=== PATIENT | male | born 1940 | race Caucasian/White ===

== ENCOUNTER → 2023-09-05 09:34 | Outpatient (REF) | payer MEDICARE, OTHER, SELFPAY ==
[2023-09-05 11:28] LABS: Glycohemoglobin (HgbA1c) 7.7 % (4.0-5.6)
[2023-09-05 11:37] LABS: ALT (SGPT) 36 U/L (0-50); AST (SGOT) 36 U/L (17-59); Albumin 4.2 g/dl (3.5-5.0); Alkaline Phosphatase 154 U/L (38-126); Blood Urea Nitrogen 10 mg/dl (9-20); Calcium 9.3 mg/dl (8.4-10.2); Carbon Dioxide 26 mmol/L (22-30); Chloride 99 mmol/L (98-107); Glucose 218 mg/dl (70-99); HDL Cholesterol 68 mg/dl; LDL Cholesterol, Calculated 37 mg/dl; Potassium 3.6 mmol/L (3.5-5.1); Sodium 134 mmol/L (135-145); Total Bilirubin 0.7 mg/dl (0.2-1.3); Total Cholesterol 139 mg/dl (50-199); Total Protein 7.6 g/dl (6.3-8.2); Triglyceride 173 mg/dl (10-149); Very Low Density Lipoprotein 34 mg/dl (0-30); eGFR > 60.00
[2023-09-05 12:22] LABS: Free T4 1.24 ng/dl (0.78-2.19)
== END ==
LOC: REG 09:34
PROVIDERS: ATTENDING PHYSICIAN Student in an Organized Health Care Education/Training Program
DX: E11.9 Type 2 diabetes mellitus without complications (principal); I25.10 Atherosclerotic heart disease of native coronary artery without angina pectoris; I48.0 Paroxysmal atrial fibrillation; R79.89 Other specified abnormal findings of blood chemistry
CPT/HCPCS: 36415; 80053; 80061; 83036; 84439; 84443

== ENCOUNTER 2023-09-12 14:21 | Emergency (ER) | payer MEDICARE, OTHER, SELFPAY ==
[2023-09-12 14:24] VITALS: BP 150/81
--- NOTE | 2023-09-12 15:07 | ED.GENMED ---
History of Present Illness
<Carrington Gallegos DO - Last Filed: 09/15/23 08:06>
General
Chief Complaint: Musculo-Skeletal Complaint
Time Seen by Provider: 09/12/23 14:29
<WEST Warren - Last Filed: 09/13/23 20:16>
General
Source: patient
Nursing documentation reviewed up to this point in time: agreed with
Travel History
Have you had any contact with someone who has COVID-19?: No
Do you have any symptoms of coronavirus? Fever > 100 degrees, chills, cough, shortness of breath, sore throat, loss of taste or smell, muscle aches, or headache?: No
History of Present Illness
History of Present Illness:
83 yr old male presents to the ER for evaluation. at bedside reports patient does have dementia and started to complain of pain to his right wrist since yesterday. She did not realize it was swollen until here in the ER. She denies any
injury and he himself denies injury. He does have history of gout on allopurinol reports no fevers. Patient does have a history of dementia and is having difficulty giving history giving majority of history.
Past History
<WEST Warren - Last Filed: 09/13/23 20:16>
Past History
ED Past Medical History: CAD, CHF, HTN, Hypercholesterolemia, NIDDM and Other (gout)
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
Patient has exhibited threatening behavior?: No
Social History
Tobacco: Former smoker (cessation at 35 y/o)
Alcohol: None
Drug: None
Personal:
Living: with family
Employment: Retired
Family History
Family History: Other
Review of Systems
<WEST Warren - Last Filed: 09/13/23 20:16>
Review of Systems
Allergies reviewed?: Yes
All Other Systems: ROS reviewed and negative except as documented in HPI and ROS
Constitutional: Reports no symptoms; Denies fever
Respiratory: Reports no symptoms
Cardiac: Reports no symptoms
Musculoskeletal: Reports other (right wrist pain )
Neurological: Reports no symptoms
Psychiatric: Reports no symptoms
Phy Exam
<WEST Warren - Last Filed: 09/13/23 20:16>
General Physical Exam
General Presentation: well appearing
General age: appears stated age
General Skin: warm and dry
General Habitus: elderly
General Mental: alert
General Hydration: appears well hydrated
Neurological Exam
Neurological Exam: alert
Musculoskeletal Exam
Musculoskeletal Exam: other (RUE with strong pulses + swelling to right wrist area tender throughout )
Skin Exam
Skin Exam: normal color and warm/dry
Psychiatric Exam
Psychiatric Exam: normal mood/affect
Course
<Carrington Gallegos DO - Last Filed: 09/15/23 08:06>
Orders/Labs/Results
Orders:
Orders
09/12/23 14:26
Forearm, Right 2 View [CR Forearm - Right 2 View] Urgent
Comment:
Reason For Exam: pain
09/12/23 14:27
Hand, Right 3 View [CR Hand - Right Min 3 Views] Urgent
Comment:
Reason For Exam: pain
09/12/23 15:21
Venous Doppler Upr Ext Right [US Periph Venous UPPER Ext RT] Urgent
Comment:
Reason For Exam: pain swelling to right forearm/wrist
09/12/23 17:43
Prednisone [Deltasone] 40 mg PO NOW STA
Vital Signs
Initial and Last Documented VS:
Initial Vital Signs
Temp Pulse Resp BP Pulse Ox
98 F 83 16 150/81 98
09/12/23 14:24 09/12/23 14:24 09/12/23 14:24 09/12/23 14:24 09/12/23 14:24
Last Documented Vital Signs
Temp Pulse Resp BP Pulse Ox
98 F 71 13 150/81 95
09/12/23 14:24 09/12/23 17:12 09/12/23 17:12 09/12/23 14:24 09/12/23 17:12
<WEST Warren - Last Filed: 09/13/23 20:16>
Orders/Labs/Results
Orders:
Orders
09/12/23 14:26
Forearm, Right 2 View [CR Forearm - Right 2 View] Urgent
Comment:
Reason For Exam: pain
09/12/23 14:27
Hand, Right 3 View [CR Hand - Right Min 3 Views] Urgent
Comment:
Reason For Exam: pain
09/12/23 15:21
Venous Doppler Upr Ext Right [US Periph Venous UPPER Ext RT] Urgent
Comment:
Reason For Exam: pain swelling to right forearm/wrist
09/12/23 17:43
Prednisone [Deltasone] 40 mg PO NOW STA
Vital Signs
Initial and Last Documented VS:
Initial Vital Signs
Temp Pulse Resp BP Pulse Ox
98 F 83 16 150/81 98
09/12/23 14:24 09/12/23 14:24 09/12/23 14:24 09/12/23 14:24 09/12/23 14:24
Last Documented Vital Signs
Temp Pulse Resp BP Pulse Ox
98 F 71 13 150/81 95
09/12/23 14:24 09/12/23 17:12 09/12/23 17:12 09/12/23 14:24 09/12/23 17:12
Warper Tender consulted with Physician
Warper Tender consulted with physician?: Yes
Name of Physician Consulted: Rosy
<WEST Warren - Last Filed: 09/13/23 20:16>
MDM/Problems Addressed
Differential Diagnosis Includes:
Not limited to injury, less likely infection, gout
MDM/Problems Addressed:
patient presents to the ER with swelling /discomfort to right hand/wrist area. He Does have a history of gout. No injury. No fevers. He is afebrile here. Patient evaluated by ED physician will check ultrasound and likely plan for discharge
home on steroids.
Chronic conditions affecting care:
Gout
<WEST Warren - Last Filed: 09/13/23 20:16>
*Critical Care Note
Total Time (30-74mins, 75-104mins- exclusive of procedures): Not Applicable
ED Attending Note
<Carrington Gallegos DO - Last Filed: 09/15/23 08:06>
ED Attending Note
Patient seen and examined by attending physician: Yes
ED Attending Note:
I have reviewed and agree with history and treatment plan by Melanie Hills. My exam reveals right wrist swelling, ttp on radial side. Suspect gout. No signs dvt or fracture on US and xray. Stable for d/c. f/u with rheumatology, PCP. Treat
with short course of steroids.
<WEST Warren - Last Filed: 09/13/23 20:16>
-
Portions of this chart may have been created with voice recognition software.� Occasional wrong word or��sound alike� substitutions may have occurred due to the inherent limitations of voice recognition software.
Discharge Plan
Departure
Patient Disposition: Home (Routine Discharge)
Date of Disposition: 09/12/23
Time of Disposition: 17:44
Patient with high blood pressure during this ER visit?: Yes
Condition: Good
Discharge Problem:
Arthralgia of wrist, right, Gout
Instructions: Gout, BLOOD PRESSURE
Prescriptions:
New
prednisone 20 mg tablet
40 mg PO DAILY 4 Days Qty: 8 0RF
No Action
allopurinol 300 MG tablet
300 mg PO DAILY Qty: 30 0RF
donepezil 5 mg Tablet
10 mg PO HS
cyanocobalamin (vitamin B-12) 1,000 mcg Tablet
1,000 mcg PO DAILY
amlodipine 5 mg Tablet
10 mg PO DAILY
carvedilol 6.25 mg Tablet
6.25 mg PO BID Qty: 60 0RF
furosemide 40 mg tablet
40 mg PO DAILY
Hold Instructions: do not start until evaluated by an MD
rosuvastatin 40 MG tablet
40 mg PO DAILY
acetaminophen 325 mg Tablet
650 mg PO BIDPRN PRN (Reason: pain)
magnesium 200 mg Tablet
200 mg PO DAILY
potassium chloride 20 mEq Tablet Extended Release
40 meq PO DAILY
Eliquis 5 mg Tablet
5 mg PO BID Qty: 60 0RF
Referrals:
Rosalinda Phillips, [Non-Admitting Privileges] - Call in 1-3 days for appt
NONE,* [Family Provider] -
Interventions
Interventions:
*Risk Screen - Suicide Last Done: 09/12/23 14:24
*General Assessment Last Done: 09/12/23 14:24
*Neglect/Abuse Screening Last Done: 09/12/23 14:24
ED- Fall Risk Assessment Last Done: 09/12/23 17:51
*ED COVID-19 Vaccine History Last Done: 09/12/23 14:50
*Nursing Disposition Last Done: 09/12/23 17:51
ED-Musculoskeletal Assessment Last Done: 09/12/23 14:50
Discharge Date and Time
Discharge Date/Time: 09/12/23 17:51
Print Language: IRISH
[2023-09-12] MEDS: DELTASONE 40 MG PO (17:48)
== END 2023-09-12 17:51 | disposition home or self-care (01) ==
LOC: EMR 14:21
PROVIDERS: EMERGENCY PHYSICIAN Emergency Medicine
DX: M25.531 Pain in right wrist (principal); M10.9 Gout, unspecified; I10 Essential (primary) hypertension
CPT/HCPCS: 99284; 73090; 73130; 93971

== ENCOUNTER → 2023-09-18 18:53 | Outpatient (REF) | payer MEDICARE, OTHER, SELFPAY ==
[2023-09-18 19:56] LABS: Uric Acid 3.1 mg/dl (3.5-8.5)
== END ==
LOC: CLAB 18:53
PROVIDERS: ATTENDING PHYSICIAN Student in an Organized Health Care Education/Training Program
DX: M10.041 Idiopathic gout, right hand (principal)
CPT/HCPCS: 84550

== ENCOUNTER → 2023-10-20 11:07 | Outpatient (REF) | payer MEDICARE, OTHER, SELFPAY ==
[2023-10-20 13:07] LABS: TSH Reflex To Free T4 3.65 uIU/ml (0.47-4.68)
[2023-10-20 13:26] LABS: Vitamin B12 955 pg/ml (239-931)
[2023-10-20 14:35] LABS: Glycohemoglobin (HgbA1c) 8.6 % (4.0-5.6)
== END ==
LOC: REG 11:07
PROVIDERS: ATTENDING PHYSICIAN Psychiatry & Neurology Neurology; FAMILY PHYSICIAN Student in an Organized Health Care Education/Training Program
DX: E53.8 Deficiency of other specified B group vitamins (principal); R79.89 Other specified abnormal findings of blood chemistry; E11.9 Type 2 diabetes mellitus without complications
CPT/HCPCS: 36415; 82607; 83036; 84443

== ENCOUNTER 2023-10-31 17:27 | Inpatient (IN) | payer MEDICARE, OTHER, SELFPAY ==
[2023-10-31] VITALS (8 sets, daily range): BP systolic 104–151; BP diastolic 53–70; PULSE 74; BMI 29.3; BMI 29.2
--- NOTE | 2023-10-31 10:17 | ED.MUSCINJ ---
HPI-Injury
General
Chief Complaint: Musculo-Skeletal Complaint
Source: patient and spouse
Exam Limitations: dementia
Time Seen by Provider: 10/31/23 10:16
Nursing documentation reviewed up to this point in time: agreed with
History of Present Illness-Injury
Initial Injury comments:
83 yo male here for worsening low back pain and inability to stand recently.
w h/o dementia, CAD, HTN,HLD, NIDDM, Gout presents with . He lives at home, has caregiver 5 days a week for housework, cooking, feeding. 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
states pt has chronic low back pain that has gotten worse past 2 weeks. Also, past 3 days he 'can't walk.' Last normal independent ambulation was 'months ago.' Uses walker and cane and now cannot weight bear and won't walk at all, has been bed
ridden past 2 days.
Pt denies CP, SOB, abd. pain. Intermittently incontinent per which is nothing new.
Pt know's he's in hospital, otherwise confused.
Past History
Past History
ED Past Medical History: CAD, CHF, HTN, Hypercholesterolemia, NIDDM, Psychiatric (dementia) and Other (gout)
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
Patient has exhibited threatening behavior?: No
Social History
Tobacco: Former smoker (cessation at 35 y/o)
Alcohol: None
Drug: None
Personal:
Living: with family
Employment: Retired
Family History
Family History: Other
Review of Systems
Review of Systems
Allergies reviewed?: Yes
All Other Systems: ROS reviewed and negative except as documented in HPI and ROS
Constitutional: Denies fever
Respiratory: Denies trouble breathing
Cardiac: Denies chest pain or syncope
ABD/GI: Denies abdominal pain, nausea, vomiting, diarrhea or constipated
: Reports incontinence (chronic, intermittent); Denies dysuria or difficulty voiding
Musculoskeletal: Reports back pain and other (pain right knee with moving); Denies edema or neck pain
Skin: Reports no symptoms
Neurological: Reports weakness (generalized); Denies headache
Phy Exam
Physical Exam
Physical Exam:
GENERAL: No acute distress. Alert, demented
CONSTITUTIONAL: Afebrile.
EYES: PERRL, conjunctivae normal
Neck: Supple
ENMT: moist mucus membranes, Pharynx nl
RESPIRATORY: Regular respirations, nonlabored, lungs clear.
CARDIOVASCULAR: Regular rate and rhythm, no murmurs, no rubs.
GI: Soft, nontender, normal BS
MUSCULOSKELETAL: Needs help turning to side due to low back pain. No significant tenderness to palpation of the spine. Unable to lift or bend at knees either leg. Passive ROM at hip elicits no back or hip pain. Passive movement of knees elicits
significant pain. Moves with ease. Well perfused.
SKIN: Warm, dry, pink
PSYCH: Normal mood and affect. Well kept.
NEUROLOGIC: Awake, alert oriented to 'hospital.' Speech clear. No focal neurological deficits
Injury Course
Orders/Labs/Results
Orders:
Orders
10/31/23 10:10
Complete Blood Count/With Diff Urgent
Comprehensive Metabolic Panel Urgent
Urinalysis Reflex To Culture Urgent
Date Specimen was Collected: 10/31/23
Time Specimen was Collected: 10:08
Urine Microscopic Reflex Cult Urgent
10/31/23 10:32
Lumbar Spine Complete, 4 View [CR Lumbar Spine Comp Min 4 Vw*] Urgent
Comment:
Reason For Exam: low back pain, not walking due to pain in legs als
10/31/23 10:42
Case Management Consult ONCE
Case Management Consult: Discharge Planning
Comment: Back pain, general weakness,can't walk past 3 days, lives w , caregiver on vacation this week.
10/31/23 11:15
Knee, Right 4 or More Views [CR Knee- Right 4 Or More View*] Urgent
Comment:
Reason For Exam: pain w movement
10/31/23 11:57
Physical Therapy Consult [Pt Eval And Treat] Urgent
Treatment: Assess ambulatory status
Activity Level: As Tolerated
10/31/23 12:00
Ondansetron Injectable [Zofran] 4 mg .ROUTE .STK-MED ONE
10/31/23 12:05
Ondansetron Injectable [Zofran] 4 mg IV NOW STA
10/31/23 13:02
Occupational Therapy Consult [Ot Eval And Treat] Urgent
Treatment: eval for placement in NH, requested by Case Mngment
10/31/23 17:16
Admit/Transfer Patient As Directed
Co-Sign Provider:
Level of Care: Inpatient admission
Assign to:: Medical/Surgical
Physician / Group: Bruce
Diagnosis: Acute ambulatory dysfunction
Reason for Hospitalization: see progress note
Expected length of stay greater than two midnights?: Yes
ELOS- Estimated Length of Stay in days: 2
I certify the patient meets the requirements for IP care: Yes
10/31/23 17:18
Code Status As Directed
Resuscitation Status: Do not resuscitate
Reached after discussion with pt or family/Healthcare POA: Yes
Physician note:: Discussed with who confirms the wishes of the patient is DNR and DNI
DNR Bracelet Application ONCE
Abnormal Lab Results
10/31/23
10:10
WBC 11.9 H 10^3/uL
(4.8-10.8)
MCV 77.4 L fL
(80.0-94.0)
MCH 26.8 L pg
(27.0-31.0)
Abs Immat Gran (auto) 0.1 H 10^3/uL
(0-0.05)
Absolute Neuts (auto) 7.7 H 10^3/uL
(1.4-6.5)
Absolute Monos (auto) 1.6 H 10^3/uL
(0.1-0.6)
Lymphocytes % 19.0 L %
(20.5-51.1)
Monocytes % 13.5 H %
(1.7-9.3)
Sodium 131 L mmol/L
(135-145)
Glucose 213 H mg/dl
(70-99)
Alkaline Phosphatase 142 H U/L
(38-126)
Albumin 3.3 L g/dl
(3.5-5.0)
Urine Ketones Trace A
(Negative)
Ur Occult Blood Reflex Trace A
(Negative)
Urine Bilirubin 1+ A
(Negative)
Urine Urobilinogen 3+ A
(Neg - 1+)
Leukocyte Esterase Rfl Trace A
(Negative)
Urine Albumin (Reflex) 2+ A
(Neg - Trace)
10/31/23 10:10
10/31/23 10:10
MDM/Problems Addressed
Differential Diagnosis Includes:
Dehydration, UTI, deconditioning, retro thecal/dura bleed
DJD knee joint
MDM/Problems Addressed:
83 yo male here for worsening low back pain and inability to stand recently.
w h/o dementia, CAD, HTN,HLD, NIDDM, Gout presents with . He lives at home, has caregiver 5 days a week for housework, cooking, feeding. 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
states pt has chronic low back pain that has gotten worse past 2 weeks. Also, past 3 days he 'can't walk.' Last normal independent ambulation was 'months ago.' Uses walker and cane and now cannot weight bear and won't walk at all, has been bed
ridden past 2 days.
states pt has had no imaging of his back, He does have a vertical mid back scar but no recollection by or in records of previous back surgery
Pt denies CP, SOB, abd. pain. Intermittently incontinent per which is nothing new.
11:17 AM
CBC with no clinically significant abnormality
CMP with no clinically significant abnormality
UA negative for infection
Case management consulted for placement, most likely temporary until caregiver back from vacation
Pt vomited. Zofran ordered
Pt know's he's in hospital, otherwise confused. Does not rember vomiting 2 minutes after vomiting large amount and currently being cleaned up
1:57 p.m.
P/T and O/T in to evaluate
4:00 PM
Case management states she is looking for placement for this patient, there is no place for today
Hospitalist notified of admission
Diagnosis: Ambulatory dysfunction, low back pain
No further vomiting
*Critical Care Note
Total Time (30-74mins, 75-104mins- exclusive of procedures): Not Applicable
ED Attending Note
-
Portions of this chart may have been created with voice recognition software.� Occasional wrong word or��sound alike� substitutions may have occurred due to the inherent limitations of voice recognition software.
Discharge Plan
Departure
Patient Disposition: Admit
Date of Disposition: 10/31/23
Time of Disposition: 16:04
Admit to: Med/Surg
Presentation/result/management discussed w/ accepting MD/DO: Hospitalist
Condition: Fair
Discharge Problem:
Ambulatory dysfunction
Interventions
Interventions:
*Risk Screen - Suicide Last Done: 10/31/23 10:00
*General Assessment Last Done: 10/31/23 10:00
*Neglect/Abuse Screening Last Done: 10/31/23 10:00
ED- Fall Risk Assessment Last Done: 10/31/23 10:00
*ED COVID-19 Vaccine History Last Done: 10/31/23 10:00
ED-Musculoskeletal Assessment Last Done: 10/31/23 10:00
[2023-10-31 10:22] LABS: % Basophils 0.6 % (0-2); % Eosinophils 1.8 % (0-6); % Immature Granulocytes 0.4 % (0-0.5); % Monocytes 13.5 % (1.7-9.3); % Neutrophils 64.7 % (42.2-75.2); Absolute Basophils 0.1 10^3/uL (0-0.2); Absolute Eosinophils 0.2 10^3/uL (0-0.7); Absolute Immature Granulocytes 0.1 10^3/uL (0-0.05); Absolute Lymphocytes 2.3 10^3/uL (1.2-3.4); Absolute Monocytes 1.6 10^3/uL (0.1-0.6); Absolute Neutrophils 7.7 10^3/uL (1.4-6.5); Hematocrit 42.7 % (39.0-52.0); Hemoglobin 14.8 g/dL (13.0-18.0); Mean Corp Hgb Conc. 34.7 g/dL (33.0-37.0); Mean Corpuscular Hgb 26.8 pg (27.0-31.0); Mean Corpuscular Volume 77.4 fL (80.0-94.0); Mean Platelet Volume 8.9 fL (7.4-10.4); Nucleated Red Blood Cells % 0 % (-); Platelet Count 148 10^3/uL (130-400); Red Blood Cell Count 5.52 10^6/uL (4.70-6.10); Red Cell Dist. Width 14.4 % (11.5-14.5); White Blood Cell Count 11.9 10^3/uL (4.8-10.8)
[2023-10-31 10:23] LABS: Urine Albumin 2+ (Neg - Trace); Urine Bilirubin 1+ (Negative); Urine Character Clear (Clear); Urine Glucose Negative (Negative); Urine Ketone Trace (Negative); Urine Leukocyte Trace (Negative); Urine Nitrite Negative (Negative); Urine Occult Blood Trace (Negative); Urine Urobilinogen 3+ (Neg - 1+)
[2023-10-31 10:24] LABS: Urine Color Amber
[2023-10-31 10:32] LABS: Urine Red Blood Cell 0-2 /HPF (0-2)
[2023-10-31 10:40] LABS: ALT (SGPT) 32 U/L (0-50); AST (SGOT) 28 U/L (17-59); Albumin 3.3 g/dl (3.5-5.0); Alkaline Phosphatase 142 U/L (38-126); Blood Urea Nitrogen 15 mg/dl (9-20); Calcium 8.7 mg/dl (8.4-10.2); Carbon Dioxide 23 mmol/L (22-30); Chloride 100 mmol/L (98-107); Estimated Creatinine Clearance 51 ml/min; Glucose 213 mg/dl (70-99); Potassium 4.1 mmol/L (3.5-5.1); Sodium 131 mmol/L (135-145); Total Bilirubin 1.3 mg/dl (0.2-1.3); Total Protein 6.3 g/dl (6.3-8.2); eGFR > 60.00
[2023-10-31] MEDS: ZOFRAN 4 MG IV (12:06)
--- NOTE | 2023-10-31 13:47 | CM ---
CM received consult for discharge planning. Patient seen bedside with , goes by Kaz, completed initial assessment questions, reports her has dementia but is not violent or aggressive. Patient resides with his on a first
floor apartment, three steps into building. reports patient typically ambulates with no device. denies VN or SNF, reports has aid five days a week to assist with housekeeping, cleaning, cooking, patient will not allow aid to help with
dressing or showering. PCP Dr. Scruggs, pharmacy [facility]. denies any inpatient psych stays for patient. PT recommending SNF, requesting referrals to [facility]. Will need OT notes to obtain SNF auth once bed
found. CM will continue to follow for discharge planning needs.
Plan; SNF pending accepting facility, will need auth.
--- NOTE | 2023-10-31 17:24 | HPS.HSE ---
Family Physician
-
Family Physician: Cinda Leong MD, [facility]
Chief Complaint
-
Ambulatory dysfunction and inability to get out of the bed because of back pain
History of Present Illness
83-year-old gentleman who lives at home with and helper was brought in by because of inability to get out of the bed.
According to since Monday he has not been able to get out of the bed. She tried to encourage him to sit in the recliner so that he has some mobility but it was difficult for him. He was complaining of pain which she thought was mostly in the
back.
When came to ER he was noted to have pain in the legs especially so in the knees. He had initial evaluation by ED team and felt no acute issues and needs placement.
He has a history of gout on allopurinol. She is not sure when his last flare was. also thinks that there was pseudogout in his case.
Patient is a poor historian because of dementia.
During my visit he asked me to switch of the lights and cut off the talking but he was agreeable for examination.
Medical History
Past Medical History
Past Medical History: Reports Arrhythmia (afib), CAD, CHF, Dementia, HTN, NIDDM and Renal Failure (ckd3)
Past Surgical History: Reports Cardiac (cabg)
Social History
Tobacco: Non-smoker
Alcohol: None
Personal:
Living: With Family
Family History
Family History: Not pertinent
Allergies / Home Medications
Allergies reflects when Allergies were last updated in [email or web address].
Home Medications with original date entered in [email or web address]
Allergy/Medication List:
Allergies
Allergy/AdvReac Type Severity Reaction Status Date / Time
NSAIDS (Non-Steroidal Allergy Pharmacy Verified 09/12/23 14:24
Anti-Inflamma to Review
rofecoxib Allergy Pharmacy Verified 09/12/23 14:24
to Review
Salicylates * Allergy Pharmacy Verified 09/12/23 14:24
to Review
Home Medications
allopurinol 300 mg tablet 300 mg PO DAILY Gout #30 tabs 04/30/21
amlodipine 5 mg tablet 10 mg PO DAILY Blood pressure 12/13/21
cyanocobalamin (vitamin B-12) 1,000 mcg tablet 1,000 mcg PO DAILY Supplement 12/13/21
donepezil 5 mg tablet 23 mg PO HS Neurological Condition 12/13/21
carvedilol 6.25 mg tablet 6.25 mg PO BID #60 tabs 12/17/21
furosemide 40 mg tablet 40 mg PO DAILY Fever/pain 12/29/21
rosuvastatin 40 mg tablet 40 mg PO DAILY High cholesterol 12/29/21
acetaminophen 325 mg tablet 650 mg PO BIDPRN PRN pain 04/05/22
magnesium 200 mg tablet 200 mg PO DAILY Supplement 04/05/22
potassium chloride 20 mEq tablet,extended release 20 meq PO DAILY Electrolyte Repletion 04/05/22
apixaban 5 mg tablet (Eliquis) 5 mg PO BID #60 tabs 04/07/22
quetiapine 25 mg tablet (Seroquel) 25 mg PO BID 10/31/23
Review of Systems
-
Unable to obtain full review of systems at this time due to: Dementia
Physical Exam
Vital Signs
Vital Signs
Temp Pulse Resp BP Pulse Ox
100.0 F 71 21 115/56 95
10/31/23 10:00 10/31/23 17:00 10/31/23 17:00 10/31/23 13:57 10/31/23 15:00
Physical Exam
General: No Apparent Distress and Comfortable (when not moved)
HEENT: Moist mucous membranes
Respiratory: Clear (anteriorly)
Cardiac: S1/S2 and Regular Rhythm
GI: Soft, Non Tender (?), Non Distended and Normal Bowel Sounds
Musculoskeletal: Other (Rt>Lt knee swelling ;warm right knee ; painful ROM more so in right knee)
Neuro: Awake, Alert and Oriented (self only)
Psych: Calm and Confused; No Agitated
Laboratory Results
-
10/31/23 10:10
10/31/23 10:10
Laboratory Results
Total Bilirubin 1.3 mg/dl (0.2-1.3) 10/31/23 10:10
AST 28 U/L (17-59) 10/31/23 10:10
ALT 32 U/L (0-50) 10/31/23 10:10
Alkaline Phosphatase 142 U/L (38-126) H 10/31/23 10:10
Data Reviewed
-
Diagnostic Radiology: Report Reviewed by me (xray of back and rt knee)
Lab Data: Labs Reviewed by me
Impression/Plan
-
Acute ambulatory dysfunction-suspect secondary to pain originating from the knees and I suspect the knees may be either gout or pseudogout. He is painful and swollen knees more so in the right knee. Right knee x-ray shows calcification of the
lateral collateral ligament and also chondrocalcinosis within the medial and lateral compartments. All raising concern of pseudogout. Check uric acid. Check inflammatory markers. Start on colchicine. He has allergies to NSAIDs of unknown
nature-hold on ibuprofen or Toradol for now.
Consult PT OT.
Lumbar spine x-ray shows no acute abnormalities.
Lab work shows no major metabolic disturbance other than mild lead low sodium. Mild elevation of leukocytes in bloodstream noted. UA not diagnostic of infection.
Chronic CHF with no decompensation-continue with his home medication
Essential hypertension-continue with his home medication
History of gout-hold allopurinol as he is going to be on colchicine.
Dementia watch for behavioral disturbance.
Discussed with on the phone regarding clinical diagnosis, findings and treatment plan.
CODE STATUS-comfortable with that his wishes are DNR and DNI.
[2023-10-31 19:37] LABS: Osmolality Urine 641 mOsm/kg (300-900)
[2023-10-31 19:43] LABS: Urine Sodium 37 mmol/L (30-90)
[2023-10-31] MEDS: ARICEPT 10 MG PO (21:03)
[2023-10-31] MEDS: COLCHICINE 0.599999999999999978 MG PO (21:05)
[2023-10-31] MEDS: SEROQUEL 25 MG PO ×2 (21:06→22:05)
[2023-10-31] MEDS: ELIQUIS 5 MG PO (21:06)
[2023-10-31] MEDS: COREG 6.25 MG PO (21:12)
[2023-10-31 21:22] LABS: Glucose - Point of Care 171 mg/dl (70-99)
--- NOTE | 2023-10-31 21:31 | W.PN.UPDATE ---
Update Note
Progress Note Update
patient requesting Seroquel 50 mg PO at night and 25mg PO daily, along with Metformin 500mg daily as he is prediabetic and its a new medications. Comfirmed with the Pharmacist. Medications ordered.
[2023-11-01 05:42] VITALS: BMI 28.8
[2023-11-01 07:25] LABS: Hematocrit 45.2 % (39.0-52.0); Hemoglobin 15.6 g/dL (13.0-18.0); Mean Corp Hgb Conc. 34.5 g/dL (33.0-37.0); Mean Corpuscular Hgb 26.7 pg (27.0-31.0); Mean Corpuscular Volume 77.3 fL (80.0-94.0); Mean Platelet Volume 9.8 fL (7.4-10.4); Platelet Count 136 10^3/uL (130-400); Red Blood Cell Count 5.85 10^6/uL (4.70-6.10); Red Cell Dist. Width 14.4 % (11.5-14.5); White Blood Cell Count 10.7 10^3/uL (4.8-10.8)
[2023-11-01 07:46] LABS: Blood Urea Nitrogen 18 mg/dl (9-20); Calcium 8.9 mg/dl (8.4-10.2); Carbon Dioxide 21 mmol/L (22-30); Chloride 102 mmol/L (98-107); Estimated Creatinine Clearance 54 ml/min; Glucose 148 mg/dl (70-99); Potassium 4.4 mmol/L (3.5-5.1); Sodium 133 mmol/L (135-145); Uric Acid 2.8 mg/dl (3.5-8.5); eGFR > 60.00
[2023-11-01 08:14] LABS: Erythrocyte Sed Rate 41 mm/hour (0-20)
[2023-11-01 08:21] VITALS: BP 146/78
[2023-11-01 08:35] LABS: Glucose - Point of Care 163 mg/dl (70-99)
[2023-11-01] MEDS: NORVASC 10 MG PO (09:04)
[2023-11-01] MEDS: LASIX 40 MG PO (09:04)
[2023-11-01] MEDS: SEROQUEL 25 MG PO (09:04)
[2023-11-01] MEDS: KCL 20 MEQ PO (09:04)
[2023-11-01] MEDS: COREG 6.25 MG PO ×2 (09:05→20:44)
[2023-11-01] MEDS: COLCHICINE 0.599999999999999978 MG PO ×2 (09:05→20:44)
[2023-11-01] MEDS: CRESTOR 40 MG PO (09:05)
[2023-11-01] MEDS: VITAMIN B-12 1000 MCG PO (09:05)
[2023-11-01] MEDS: ELIQUIS 5 MG PO ×2 (09:05→20:44)
[2023-11-01] MEDS: GLUCOPHAGE 500 MG PO (09:05)
[2023-11-01] MEDS: MAG-TAB SR 84 MG PO (09:06)
[2023-11-01 12:10] LABS: Glucose - Point of Care 196 mg/dl (70-99)
--- NOTE | 2023-11-01 13:32 | W.PN.HOSP.TC ---
Today's Communication/Plan
-
CW Colchicine
DC in am if continued improvement in pain
Assessment / Plan
Assessment / Plan
Acute ambulatory dysfunction-suspect secondary to pain originating from the knees and I suspect the knees may be either gout or pseudogout. He is painful and swollen knees more so in the right knee. Right knee x-ray shows calcification of the
lateral collateral ligament and also chondrocalcinosis within the medial and lateral compartments. All raising concern of pseudogout. uric acid lower. High inflammatory markers. Start on colchicine -Continue with improvement in his right knee
and left knee symptoms.. He has allergies to NSAIDs of unknown nature-hold on ibuprofen or Toradol for now.
Cw PT OT.
Lumbar spine x-ray shows no acute abnormalities.
Lab work shows no major metabolic disturbance other than mild low sodium. Mild elevation of leukocytes in bloodstream noted. UA not diagnostic of infection. WBC normalized ?reactive
mild hyponatremia. Urine shows presence of ADH. Possibly secondary to pain. Improving sodium.
Chronic CHF with no decompensation-continue with his home medication
Essential hypertension-continue with his home medication
History of gout-hold allopurinol as he is going to be on colchicine.
Dementia watch for behavioral disturbance.
Discussed with on the phone 10/30 regarding clinical diagnosis, findings and treatment plan.
CODE STATUS-comfortable with that his wishes are DNR and DNI.
Needs rehab when stable
Anticipated Discharge: Within 24 hours
Subjective/Interval History
-
Date of Service: November 01, 2023
Patient alert and oriented to place and person.
When asked about pain he denies any pain but when started examine he right-sided pain from right ankle.
Objective Data
-
Labs:
Laboratory Results
11/01/23
06:40
WBC 10.7
Hgb 15.6
Hct 45.2
Plt Count 136
Sodium 133 L
Potassium 4.4
Chloride 102
Carbon Dioxide 21 L
BUN 18
Creatinine 1.0
Glucose 148 H
Calcium 8.9
Vital Signs:
Vital Signs
Temp Pulse Resp BP Pulse Ox
98.8 F 70 18 146/78 93
11/01/23 08:21 11/01/23 09:04 11/01/23 08:21 11/01/23 09:04 11/01/23 09:00
I&O
10/31/23 11/01/23 11/02/23
06:59 06:59 06:59
Intake Total 240 / 240
Output Total 500 / 500
Balance -260 / -260
Review of Systems
-
Unable to obtain full review of systems at this time due to: Dementia
Physical Exam
-
General: No Apparent Distress
HEENT: Moist Mucous Membranes
Respiratory: Clear to Auscultation
Cardiac: Regular Rhythm and S1/S2
GI: Soft
Musculoskeletal: Other (left knee easier to move ;rt knee easier to move but in pain; rt ankle painful ROM)
Neuro: Awake, Alert and Oriented; Negative No Motor Deficits (due to dementia)
Psych: Calm and Confused
Data Reviewed
-
Labs: Labs Reviewed by me
[2023-11-01 16:15] VITALS: BP 156/60
[2023-11-01 17:09] LABS: Glucose - Point of Care 172 mg/dl (70-99)
[2023-11-01] MEDS: SEROQUEL 50 MG PO (20:43)
[2023-11-01] MEDS: ARICEPT 10 MG PO (20:44)
[2023-11-01 21:15] LABS: Glucose - Point of Care 176 mg/dl (70-99)
[2023-11-01 23:51] VITALS: BP 135/63
[2023-11-02 06:00] VITALS: BMI 28.4
[2023-11-02 07:21] LABS: Glucose - Point of Care 167 mg/dl (70-99)
[2023-11-02 08:03] VITALS: BP 164/71
[2023-11-02] MEDS: COLCHICINE 0.599999999999999978 MG PO ×2 (09:33→20:03)
[2023-11-02] MEDS: COREG PO (09:33)
[2023-11-02] MEDS: CRESTOR 40 MG PO (09:34)
[2023-11-02] MEDS: NORVASC 10 MG PO (09:34)
[2023-11-02] MEDS: LASIX 40 MG PO (09:34)
[2023-11-02] MEDS: GLUCOPHAGE 500 MG PO (09:34)
[2023-11-02] MEDS: SEROQUEL 25 MG PO (09:35)
[2023-11-02] MEDS: VITAMIN B-12 1000 MCG PO (09:35)
[2023-11-02] MEDS: MAG-TAB SR 84 MG PO (09:35)
[2023-11-02] MEDS: ELIQUIS 5 MG PO ×2 (09:35→20:03)
[2023-11-02] MEDS: KCL 20 MEQ PO (09:36)
[2023-11-02 10:28] VITALS: BP 152/66; PULSE 64; O2SAT 94
[2023-11-02 10:34] VITALS: BP 152/66; PULSE 64; O2SAT 94
[2023-11-02 11:22] LABS: Glucose - Point of Care 188 mg/dl (70-99)
[2023-11-02 15:49] VITALS: BP 147/73
[2023-11-02 16:24] LABS: Glucose - Point of Care 180 mg/dl (70-99)
--- NOTE | 2023-11-02 16:38 | CM ---
[facility] does not have a bed.
Jes Loja said he is out of network without a out of network benefit.
[facility] does not have a bed.
Spoke with reviewed above.
picked [facility] .
Referral placed .
[facility] at [facility] accepted pt.
Auth needed Npi [id number] and Dr Calzada .
requested Ambulance
[facility]
report [phone]
fax [phone]
To [facility] after auth
--- NOTE | 2023-11-02 18:36 | W.PN.HOSP.TC ---
Today's Communication/Plan
-
Physical therapy.
[facility]
Assessment / Plan
Assessment / Plan
Impression:
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
�Suspected gout versus pseudogout
Conditions prior to admission:
Chronic diastolic CHF.
Ischemic cardiomyopathy with improved left ventricular function.
Paroxysmal atrial fibrillation
Anticoagulation with Eliquis
CAD.
Mild aortic regurgitation.
Essential hypertension
Chronic kidney disease stage III.
Type 2 diabetes by history, currently controlled with diet alone.
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
Plan
Acute ambulatory dysfunction-suspect secondary to pain originating from the knees and I suspect the knees may be either gout or pseudogout. He is painful and swollen knees more so in the right knee. Right knee x-ray shows calcification of the
lateral collateral ligament and also chondrocalcinosis within the medial and lateral compartments. All raising concern of pseudogout. uric acid lower. High inflammatory markers. Initiated on colchicine and improved.
Hold allopurinol
Cw PT OT.
Lumbar spine x-ray shows no acute abnormalities.
Lab work shows no major metabolic disturbance other than mild low sodium. Mild elevation of leukocytes in bloodstream noted. UA not diagnostic of infection. WBC normalized ?reactive
mild hyponatremia. Urine shows presence of ADH. Possibly secondary to pain. Improving sodium.
Chronic CHF with no decompensation-continue with his home medication
Essential hypertension-continue with his home medication
History of gout-hold allopurinol as he is going to be on colchicine.
Dementia watch for behavioral disturbance.
CODE STATUS-comfortable with that his wishes are DNR and DNI.
Needs rehab when stable
Anticipated Discharge: Within 24 hours
Subjective/Interval History
-
Date of Service: November 02, 2023
Objective Data
-
Vital Signs:
Vital Signs
Temp Pulse Resp BP Pulse Ox
97.9 F 70 17 147/73 92
11/02/23 15:49 11/02/23 15:49 11/02/23 15:49 11/02/23 15:49 11/02/23 15:49
I&O
11/01/23 11/02/23 11/03/23
06:59 06:59 06:59
Intake Total 240 / 240 720 / 720 210 / 210
Output Total 500 / 500
Balance -260 / -260 720 / 720 210 / 210
Physical Exam
-
General: Well Developed and No Apparent Distress
HEENT: Normocephalic, Atraumatic and Moist Mucous Membranes
Respiratory: Clear to Auscultation
Cardiac: Regular Rhythm and S1/S2; Negative Murmur, Rub or Gallop
GI: Soft, Nontender, Nondistended and Normal Bowel Sounds; Negative Organomegaly
Rectal: Deferred by Provider
Musculoskeletal: No Clubbing, No Cyanosis and No Edema
Skin: Negative Rash
Neuro: Awake, Alert and Nonfocal/Grossly Intact
[2023-11-02] MEDS: COREG 6.25 MG PO (20:03)
[2023-11-02 21:37] LABS: Glucose - Point of Care 204 mg/dl (70-99)
[2023-11-02] MEDS: ARICEPT 10 MG PO (22:39)
[2023-11-02] MEDS: SEROQUEL 50 MG PO (22:39)
[2023-11-02 23:40] VITALS: BP 134/67
[2023-11-03 06:00] VITALS: BMI 28.3
[2023-11-03 07:52] LABS: Glucose - Point of Care 135 mg/dl (70-99)
[2023-11-03 07:55] VITALS: BP 143/66
[2023-11-03] MEDS: GLUCOPHAGE 500 MG PO (08:41)
[2023-11-03] MEDS: ELIQUIS 5 MG PO ×2 (08:41→20:54)
[2023-11-03] MEDS: VITAMIN B-12 1000 MCG PO (08:41)
[2023-11-03] MEDS: KCL 20 MEQ PO (08:41)
[2023-11-03] MEDS: CRESTOR 40 MG PO (08:41)
[2023-11-03] MEDS: COREG 6.25 MG PO ×2 (08:41→20:54)
[2023-11-03] MEDS: MAG-TAB SR 84 MG PO (08:42)
[2023-11-03] MEDS: SEROQUEL 25 MG PO (08:42)
[2023-11-03] MEDS: COLCHICINE 0.599999999999999978 MG PO ×2 (08:42→20:54)
[2023-11-03] MEDS: NORVASC 10 MG PO (08:42)
[2023-11-03] MEDS: LASIX 40 MG PO (08:42)
--- NOTE | 2023-11-03 10:40 | CM ---
MD indicated pt medically ready for discharge.
PT OT indicated SNF need.
Merlin [phone] requested [facility] .
[facility] accept pt.
Scottieellafernando called [phone] spoke with Norma Olvera who retrieved clinical information with Reference Number [id number]. Additional clinical faxed to [phone]
requested Ambulance. [facility]cial nec form completed.
[facility]
report [phone]
fax [phone]
To [facility] after auth
[2023-11-03 12:04] LABS: Glucose - Point of Care 173 mg/dl (70-99)
[2023-11-03 15:55] VITALS: BP 120/68
--- NOTE | 2023-11-03 16:47 | W.PN.HOSP.TC ---
Today's Communication/Plan
-
Knee pain improved.
Currently on colchicine.
Able to tolerate physical therapy
Will transition back to allopurinol upon discharge.
Assessment / Plan
Assessment / Plan
Impression:
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
�Suspected gout versus pseudogout
Conditions prior to admission:
Chronic diastolic CHF.
Ischemic cardiomyopathy with improved left ventricular function.
Paroxysmal atrial fibrillation
Anticoagulation with Eliquis
CAD.
Mild aortic regurgitation.
Essential hypertension
Chronic kidney disease stage III.
Type 2 diabetes by history, currently controlled with diet alone.
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
Plan
Acute ambulatory dysfunction-suspect secondary to pain originating from the knees and I suspect the knees may be either gout or pseudogout. He is painful and swollen knees more so in the right knee. Right knee x-ray shows calcification of the
lateral collateral ligament and also chondrocalcinosis within the medial and lateral compartments. All raising concern of pseudogout. uric acid lower. High inflammatory markers. Initiated on colchicine and improved.
Hold allopurinol
Cw PT OT.
Lumbar spine x-ray shows no acute abnormalities.
Lab work shows no major metabolic disturbance other than mild low sodium. Mild elevation of leukocytes in bloodstream noted. UA not diagnostic of infection. WBC normalized ?reactive
mild hyponatremia. Urine shows presence of ADH. Possibly secondary to pain. Improving sodium.
Chronic CHF with no decompensation-continue with his home medication
Essential hypertension-continue with his home medication
History of gout-hold allopurinol as he is going to be on colchicine.
Dementia watch for behavioral disturbance.
CODE STATUS-comfortable with that his wishes are DNR and DNI.
Needs rehab when stable
Anticipated Discharge: 24 - 48 hours
Subjective/Interval History
-
Date of Service: November 03, 2023
Objective Data
-
Vital Signs:
Vital Signs
Temp Pulse Resp BP Pulse Ox
97.7 F 60 20 120/68 96
11/03/23 15:55 11/03/23 15:55 11/03/23 15:55 11/03/23 15:55 11/03/23 15:55
I&O
11/02/23 11/03/23 11/04/23
06:59 06:59 06:59
Intake Total 720 / 720 210 / 210
Balance 720 / 720 210 / 210
Physical Exam
-
General: Well Developed and No Apparent Distress
HEENT: Normocephalic, Atraumatic and Moist Mucous Membranes
Respiratory: Clear to Auscultation
Cardiac: Regular Rhythm and S1/S2; Negative Murmur, Rub or Gallop
GI: Soft, Nontender, Nondistended and Normal Bowel Sounds; Negative Organomegaly
Rectal: Deferred by Provider
Musculoskeletal: No Clubbing, No Cyanosis and No Edema
Skin: Negative Rash
Neuro: Nonfocal/Grossly Intact
[2023-11-03 16:51] LABS: Glucose - Point of Care 179 mg/dl (70-99)
[2023-11-03 21:29] LABS: Glucose - Point of Care 157 mg/dl (70-99)
[2023-11-03] MEDS: ARICEPT 10 MG PO (22:08)
[2023-11-03] MEDS: SEROQUEL 50 MG PO (22:08)
[2023-11-03 23:43] VITALS: BP 136/67
[2023-11-04 06:00] VITALS: BMI 27.8
[2023-11-04 07:00] VITALS: BP 158/68
[2023-11-04 07:34] LABS: Glucose - Point of Care 139 mg/dl (70-99)
[2023-11-04] MEDS: SEROQUEL 25 MG PO (08:57)
[2023-11-04] MEDS: NORVASC 10 MG PO (08:57)
[2023-11-04] MEDS: VITAMIN B-12 1000 MCG PO (08:57)
[2023-11-04] MEDS: GLUCOPHAGE 500 MG PO (08:58)
[2023-11-04] MEDS: KCL 20 MEQ PO (08:58)
[2023-11-04] MEDS: CRESTOR 40 MG PO (08:58)
[2023-11-04] MEDS: MAG-TAB SR 84 MG PO (08:58)
[2023-11-04] MEDS: COREG 6.25 MG PO (08:58)
[2023-11-04] MEDS: COLCHICINE 0.599999999999999978 MG PO (08:58)
[2023-11-04] MEDS: LASIX 40 MG PO (08:58)
[2023-11-04] MEDS: ELIQUIS 5 MG PO (09:10)
--- NOTE | 2023-11-04 09:36 | CM ---
Addendum entered by Rita Christopher 11/04/23 10:53:
Patient spoke with CM and is aware that patient does not want to go. IMM to be sent to [email or web address]. Patient indicated that she would talk to patient.
Addendum entered by Rita Christopher 11/04/23 09:43:
VM left for patient re; discharge and IMM
Original Note:
auth received from [facility]; called to [facility] at pending sale to [facility] and faxed to [phone]. CM updated physician and will call to patient to confirm IMM. Patient will need ambulance, form on chart per chart review. Update provided to nursing.
Plan; SNF
[facility]
report [phone]
fax [phone]
--- NOTE | 2023-11-04 11:10 | W.PN.HOSP.TC ---
Addendum entered and electronically signed by Mick Rapp MD 11/05/23 15:33:
[id number]
Original Note:
Today's Communication/Plan
-
dc back on allopurinol, dc colchicine
F/u PCP within 1 week
bmp in 1 week
Assessment / Plan
Assessment / Plan
Impression:
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
�Suspected gout versus pseudogout
Conditions prior to admission:
Chronic diastolic CHF.
Ischemic cardiomyopathy with improved left ventricular function.
Paroxysmal atrial fibrillation
Anticoagulation with Eliquis
CAD.
Mild aortic regurgitation.
Essential hypertension
Chronic kidney disease stage III.
Type 2 diabetes by history, currently controlled with diet alone.
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
Plan
Acute ambulatory dysfunction-suspect secondary to pain originating from the knees and I suspect the knees may be either gout or pseudogout. He is painful and swollen knees more so in the right knee. Right knee x-ray shows calcification of the
lateral collateral ligament and also chondrocalcinosis within the medial and lateral compartments. All raising concern of pseudogout. uric acid lower. High inflammatory markers. Initiated on colchicine and improved.
Hold allopurinol
Cw PT OT.
Lumbar spine x-ray shows no acute abnormalities.
Lab work shows no major metabolic disturbance other than mild low sodium. Mild elevation of leukocytes in bloodstream noted. UA not diagnostic of infection. WBC normalized ?reactive
mild hyponatremia. Urine shows presence of ADH. Possibly secondary to pain. Improving sodium.
Chronic CHF with no decompensation-continue with his home medication
Essential hypertension-continue with his home medication
History of gout-hold allopurinol as he is going to be on colchicine.
Dementia watch for behavioral disturbance.
CODE STATUS-comfortable with that his wishes are DNR and DNI.
DC today back on allopurinol. Going to [facility].
More than 30 minutes spent in discharge including
Final examination of the patient
Summarizing hospital stay
Instructions for continuing care to all relevant caregivers
Preparation of discharge records, prescriptions, and referral forms
Total time spent (35 in minutes):
Anticipated Discharge: Today
Subjective/Interval History
-
Date of Service: November 04, 2023
no acute events
Objective Data
-
Vital Signs:
Vital Signs
Temp Pulse Resp BP Pulse Ox
98.8 F 65 20 158/68 97
11/04/23 07:00 11/04/23 07:00 11/04/23 07:00 11/04/23 07:00 11/04/23 07:00
I&O
11/03/23 11/04/23 11/05/23
06:59 06:59 06:59
Intake Total 210 / 210 180 / 180
Balance 210 / 210 180 / 180
Review of Systems
-
Unable to obtain full review of systems at this time due to: Dementia
Physical Exam
-
General: Well Developed and No Apparent Distress
HEENT: Normocephalic, Atraumatic and Moist Mucous Membranes
Respiratory: Clear to Auscultation
Cardiac: Regular Rhythm and S1/S2; Negative Murmur, Rub or Gallop
GI: Soft, Nontender, Nondistended and Normal Bowel Sounds; Negative Organomegaly
Rectal: Deferred by Provider
Musculoskeletal: No Clubbing, No Cyanosis and No Edema
Skin: Negative Rash
Neuro: Nonfocal/Grossly Intact
Data Reviewed
-
Labs: Labs Reviewed by me
--- NOTE | 2023-11-04 11:12 | W.DS.TRANS ---
DC Summary - [employer]
-
Discharge Instructions:
Sleep Apnea Risk Intermediate
Discharge Diagnosis/Procedures Gout.
Chronic ambulatory dysfunction.
Dementia.
CHF preserved EF
Paroxysmal atrial fibrillation
Anticoagulation with Eliquis
Diet Low Cholesterol,Low Fat
Blood Work bmp in 1 week with pcp
Instructions:
Stand-Alone Forms:
Changes to Home Medications: No
Discharge Medications:
DC Medications w/original date entered in [employer]
allopurinol 300 mg tablet 300 mg PO DAILY Gout #30 tabs 04/30/21
amlodipine 5 mg tablet 10 mg PO DAILY Blood pressure 12/13/21
cyanocobalamin (vitamin B-12) 1,000 mcg tablet 1,000 mcg PO DAILY Supplement 12/13/21
donepezil 5 mg tablet 23 mg PO HS Neurological Condition 12/13/21
carvedilol 6.25 mg tablet 6.25 mg PO BID #60 tabs 12/17/21
furosemide 40 mg tablet 40 mg PO DAILY Fever/pain 12/29/21
rosuvastatin 40 mg tablet 40 mg PO DAILY High cholesterol 12/29/21
acetaminophen 325 mg tablet 650 mg PO BIDPRN PRN pain 04/05/22
magnesium 200 mg tablet 200 mg PO DAILY Supplement 04/05/22
potassium chloride 20 mEq tablet,extended release 20 meq PO DAILY Electrolyte Repletion 04/05/22
apixaban 5 mg tablet (Eliquis) 5 mg PO BID #60 tabs 04/07/22
metformin 500 mg tablet 500 mg PO DAILY Diabetes 10/31/23
quetiapine 25 mg tablet (Seroquel) 25 mg PO DAILY Mental Health/Anxiety 10/31/23
quetiapine 50 mg tablet (Seroquel) 50 mg PO HS Mental Health/Anxiety 10/31/23
Home Medication Changes
NA
Pending Results: No
[2023-11-04 12:07] LABS: Glucose - Point of Care 162 mg/dl (70-99)
[2023-11-04 13:03] VITALS: BP 147/58
== END 2023-11-04 13:40 | DRG 554 ==
LOC: 4 EAST ACU 17:27
PROVIDERS: ADMITTING PHYSICIAN Internal Medicine; ATTENDING PHYSICIAN Internal Medicine; EMERGENCY PHYSICIAN Emergency Medicine; FAMILY PHYSICIAN Student in an Organized Health Care Education/Training Program
DX: M10.9 Gout, unspecified (principal); I13.0 Hypertensive heart and chronic kidney disease with heart failure and stage 1 through stage 4 chronic kidney disease, or unspecified chronic kidney disease; I50.30 Unspecified diastolic (congestive) heart failure; E87.1 Hypo-osmolality and hyponatremia; I50.32 Chronic diastolic (congestive) heart failure; Z87.891 Personal history of nicotine dependence; Z66 Do not resuscitate; N18.30 Chronic kidney disease, stage 3 unspecified; I48.0 Paroxysmal atrial fibrillation; I25.5 Ischemic cardiomyopathy; F03.90 Unspecified dementia, unspecified severity, without behavioral disturbance, psychotic disturbance, mood disturbance, and anxiety
CPT/HCPCS: 72110; 73564; 80048; 80053; 81003; 81015; 82962; 83935; 84300; 84550; 85025; 85027; 85652; 86140; 96374; 97530; 97535; 99285

== ENCOUNTER 2025-01-20 08:25 | Inpatient (IN) | payer MEDICARE, OTHER, SELFPAY ==
[2025-01-20] VITALS (8 sets, daily range): BP systolic 126–151; BP diastolic 60–81; BMI 27.2
[2025-01-20] MEDS: MORPHINE SULFATE 4 MG IV (05:34)
--- NOTE | 2025-01-20 05:36 | ED.MUSCINJ ---
HPI-Injury
<Nemesio Washington DO - Last Filed: 01/20/25 05:37>
General
Chief Complaint: Fall
Source: patient and ambulance crew
Exam Limitations: none
Time Seen by Provider: 01/20/25 05:29
Nursing documentation reviewed up to this point in time: agreed with
History of Present Illness-Injury
Is this injury a work related problem?: No
Is pt an associate of [facility]/[place]?: No
Initial Injury comments:
84-year-old male fell getting out of his wheelchair injured his right hip no head strike he is on Eliquis, occurred just prior to arrival he is hard of hearing
Past History
<Nemesio Washington DO - Last Filed: 01/20/25 05:37>
Past History
ED Past Medical History: CAD, CHF, HTN, Hypercholesterolemia, NIDDM, Psychiatric (dementia) and Other (gout)
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
Patient has exhibited threatening behavior?: No
Social History
Tobacco: Former smoker (cessation at 35 y/o)
Alcohol: None
Drug: None
Personal:
Living: with family
Employment: Retired
Family History
Family History: Other
Phy Exam
<Nemesio Washington DO - Last Filed: 01/20/25 05:37>
Physical Exam
Physical Exam:
Physical Exam
General: Somewhat disheveled chronically ill male
Neck: No overt signs of head or neck
Heart: Regular.
Lungs: no acute respiratory distress.
Abdomen: Nontender
Neuro: Hard of hearing, moves all extremities
Skin: no rash
Psychiatric: Disheveled cooperative
Extremities: Shortened and rotated right hip painful
Injury Course
<Nemesio Washington DO - Last Filed: 01/20/25 05:37>
Orders/Labs/Results
Orders:
Orders
01/20/25 05:08
Electrocardiogram (*1) Urgent
Reason for Study: Other
Other Reason for Exam: trauma
Cardiac Monitoring- Treatment ONCE
EKG- Treatment ONCE
CR Hip - RT w/wo Pel 2-3 Vw* Urgent
Comment: include pelvis
Reason For Exam: fall
Include a pelvis x-ray?: Yes
01/20/25 05:09
Morphine Sulfate 4 mg IV NOW STA
01/20/25 05:32
Type+Screen Urgent
Complete Blood Count/With Diff Urgent
Comprehensive Metabolic Panel Urgent
01/20/25 05:58
HYDROmorphone [Dilaudid] 1 mg IV NOW STA
01/20/25 06:39
HYDROmorphone [Dilaudid] 1 mg IV NOW STA
01/20/25 07:25
CR Femur - Right Min 2 Vw Urgent
Comment:
Reason For Exam: intertrochanteric fracture
01/20/25 07:50
Echo 2D MMode Color/Doppler Routine
Reason for Study: chf,afib
01/20/25 07:[address] [CT Head W/o Iv Contrast] Routine
Comment:
Reason For Exam: fall
01/20/25 08:03
Admit/Transfer Patient As Directed
Co-Sign Provider:
Level of Care: Inpatient admission
Assign to:: Telemetry
Physician / Group: Hospitalist
Diagnosis: hip fracture
Reason for Telemetry: Arrhythmia
Date to Stop Telemetry: 01/23/25
Time to Stop Telemetry: 11:00
Reason for Hospitalization: hip fracture
Expected length of stay greater than two midnights?: Yes
ELOS- Estimated Length of Stay in days: 2
I certify the patient meets the requirements for IP care: Yes
PRN Pain Medication Management As Directed
May give lesser potent ordered pain med per pt: Yes
preference::
Protocol:: Medication orders for pain may be administered in a
manner that supports deferring to patient preference
when the pt is:
- Requesting an ordered lesser potent pain medication.
Least to most potent pain medications are defined
as: acetaminophen < NSAID < tramadol < opioids
(morphine, oxycodone, hydromorphone).
- Requesting a lesser dose of the same medication IF
ORDERED.
- Requesting a less intrusive route of administration
if both routes are prescribed by the provider (PO <
IV).
01/20/25 08:05
Code Status As Directed
Resuscitation Status: Do not resuscitate
Reached after discussion with pt or family/Healthcare POA: Yes
Physician note:: son stated DNR
DNR Bracelet Application ONCE
01/23/25 11:00
DC Protocol for Telemetry ONCE
Abnormal Lab Results
01/20/25
05:32
WBC 12.3 H 10^3/uL
(4.8-10.8)
RDW 15.7 H %
(11.5-14.5)
Absolute Neuts (auto) 6.8 H 10^3/uL
(1.4-6.5)
Absolute Monos (auto) 0.9 H 10^3/uL
(0.1-0.6)
Absolute Eos (auto) 1.5 H 10^3/uL
(0-0.7)
Eosinophils % 12.1 H %
(0-6)
Glucose 146 H mg/dl
(70-99)
Alkaline Phosphatase 163 H U/L
(38-126)
01/20/25 05:32
01/20/25 05:32
<Mark Malone PA-C - Last Filed: 01/20/25 09:00>
Orders/Labs/Results
Orders:
Orders
01/20/25 05:08
Electrocardiogram (*1) Urgent
Reason for Study: Other
Other Reason for Exam: trauma
Cardiac Monitoring- Treatment ONCE
EKG- Treatment ONCE
CR Hip - RT w/wo Pel 2-3 Vw* Urgent
Comment: include pelvis
Reason For Exam: fall
Include a pelvis x-ray?: Yes
01/20/25 05:09
Morphine Sulfate 4 mg IV NOW STA
01/20/25 05:32
Type+Screen Urgent
Complete Blood Count/With Diff Urgent
Comprehensive Metabolic Panel Urgent
01/20/25 05:58
HYDROmorphone [Dilaudid] 1 mg IV NOW STA
01/20/25 06:39
HYDROmorphone [Dilaudid] 1 mg IV NOW STA
01/20/25 07:25
CR Femur - Right Min 2 Vw Urgent
Comment:
Reason For Exam: intertrochanteric fracture
01/20/25 07:50
Echo 2D MMode Color/Doppler Routine
Reason for Study: chf,afib
01/20/25 07:[address] [CT Head W/o Iv Contrast] Routine
Comment:
Reason For Exam: fall
01/20/25 08:03
Admit/Transfer Patient As Directed
Co-Sign Provider:
Level of Care: Inpatient admission
Assign to:: Telemetry
Physician / Group: Hospitalist
Diagnosis: hip fracture
Reason for Telemetry: Arrhythmia
Date to Stop Telemetry: 01/23/25
Time to Stop Telemetry: 11:00
Reason for Hospitalization: hip fracture
Expected length of stay greater than two midnights?: Yes
ELOS- Estimated Length of Stay in days: 2
I certify the patient meets the requirements for IP care: Yes
PRN Pain Medication Management As Directed
May give lesser potent ordered pain med per pt: Yes
preference::
Protocol:: Medication orders for pain may be administered in a
manner that supports deferring to patient preference
when the pt is:
- Requesting an ordered lesser potent pain medication.
Least to most potent pain medications are defined
as: acetaminophen < NSAID < tramadol < opioids
(morphine, oxycodone, hydromorphone).
- Requesting a lesser dose of the same medication IF
ORDERED.
- Requesting a less intrusive route of administration
if both routes are prescribed by the provider (PO <
IV).
01/20/25 08:05
Code Status As Directed
Resuscitation Status: Do not resuscitate
Reached after discussion with pt or family/Healthcare POA: Yes
Physician note:: son stated DNR
DNR Bracelet Application ONCE
01/23/25 11:00
DC Protocol for Telemetry ONCE
Abnormal Lab Results
01/20/25
05:32
WBC 12.3 H 10^3/uL
(4.8-10.8)
RDW 15.7 H %
(11.5-14.5)
Absolute Neuts (auto) 6.8 H 10^3/uL
(1.4-6.5)
Absolute Monos (auto) 0.9 H 10^3/uL
(0.1-0.6)
Absolute Eos (auto) 1.5 H 10^3/uL
(0-0.7)
Eosinophils % 12.1 H %
(0-6)
Glucose 146 H mg/dl
(70-99)
Alkaline Phosphatase 163 H U/L
(38-126)
01/20/25 05:32
01/20/25 05:32
<Nemesio Washington DO - Last Filed: 01/20/25 05:37>
*Pulse Oximetry
Oxygen Mode of Delivery: Room air
<Mark Malone PA-C - Last Filed: 01/20/25 09:00>
*Pulse Oximetry
Patient hypoxic: no
*Critical Care Note
Total Time (30-74mins, 75-104mins- exclusive of procedures): Not Applicable
<Mark Malone PA-C - Last Filed: 01/20/25 09:00>
Patient Management
Discussion with other providers: Hospitalist and [employer] Application Developer
Escalation/DeEscalation of care consider admission/obs:
Hospitalist team notified and accepts for continued evaluation and treatment. Orthopedics team was also notified for consult as patient will need OR repair.
ED Attending Note
<Nemesio Washington DO - Last Filed: 01/20/25 05:37>
-
Portions of this chart may have been created with voice recognition software.� Occasional wrong word or��sound alike� substitutions may have occurred due to the inherent limitations of voice recognition software.
Discharge Plan
Departure
Patient Disposition: Admit
Date of Disposition: 01/20/25
Time of Disposition: 07:18
Presentation/result/management discussed w/ accepting MD/DO: Hospitalist
Discharge Problem:
Closed intertrochanteric fracture of right femur
Interventions
Interventions:
*Risk Screen - Suicide Last Done: 01/20/25 05:10
*General Assessment Last Done: 01/20/25 05:10
*Neglect/Abuse Screening Last Done: 01/20/25 05:10
*ED- Fall Risk Assessment Last Done: 01/20/25 05:10
*ED COVID-19 Vaccine History Last Done: 01/20/25 05:10
ED-Musculoskeletal Assessment Last Done: 01/20/25 05:19
ED- Neurological Assessment Last Done: 01/20/25 05:19
ED-Skin Assessment Last Done: 01/20/25 05:19
[2025-01-20 05:57] LABS: Hematocrit 44.9 % (39.0-52.0); Hemoglobin 15.0 g/dL (13.0-18.0); Mean Corp Hgb Conc. 33.4 g/dL (33.0-37.0); Mean Corpuscular Volume 82.2 fL (80.0-94.0); Nucleated Red Blood Cells % 0 % (-); Platelet Count 205 10^3/uL (130-400); Red Cell Dist. Width 15.7 % (11.5-14.5)
[2025-01-20] MEDS: DILAUDID 1 MG IV ×2 (06:06→06:46)
[2025-01-20 06:17] LABS: ALT (SGPT) 28 U/L (0-50); AST (SGOT) 35 U/L (17-59); Albumin 3.6 g/dl (3.5-5.0); Alkaline Phosphatase 163 U/L (38-126); Blood Urea Nitrogen 14 mg/dl (9-20); Calcium 9.2 mg/dl (8.4-10.2); Carbon Dioxide 28 mmol/L (22-30); Chloride 107 mmol/L (98-107); Glucose 146 mg/dl (70-99); Potassium 4.8 mmol/L (3.5-5.1); Sodium 139 mmol/L (135-145); Total Protein 7.0 g/dl (6.3-8.2); eGFR > 60.00
--- NOTE | 2025-01-20 07:39 | HPS.HSE ---
Family Physician
-
Family Physician: David Shelby
Chief Complaint
-
Fall
History of Present Illness
84-year-old man presented to the hospital with a fall while trying to get out of the wheelchair. Spoke to patient's son who stated that patient's who was the primary caregiver 3 months ago and patient was moved to [facility].
He has been ambulating less and less. He had a fall few months ago and then still recovering.
Medical History
Past Medical History
Past Medical History: Reports Other
Additional Past Medical History:
Dementia, history of stroke, chronic back pain, atrial fibrillation, CHF, coronary artery disease, hypertension, hyperlipidemia, peripheral artery disease, peptic ulcer disease, history of renal failure, gout, diabetes
Past Surgical History: Reports Other
Additional Past Surgical History:
Carpal tunnel surgery bilateral, bilateral inguinal hernia surgery, CABG in 2002, bowel resection 2013, left lower extremity vascular stent, AAA repair, stent in the right kidney
Social History
Tobacco: Former Smoker
Family History
Family History: Unable to Obtain
Allergies / Home Medications
Allergies reflects when Allergies were last updated in [employer].
Home Medications with original date entered in [employer]
Allergy/Medication List:
Allergies
Allergy/AdvReac Type Severity Reaction Status Date / Time
NSAIDS (Non-Steroidal Allergy Verified 01/20/25 05:09
Anti-Inflamma DENIES ANY
ALLERGIES
rofecoxib Allergy Verified 01/20/25 05:09
DENIES ANY
ALLERGIES
Salicylates * Allergy Verified 01/20/25 05:09
DENIES ANY
ALLERGIES
Home Medications
allopurinol 300 mg tablet 300 mg PO DAILY Gout #30 tabs 04/30/21
cyanocobalamin (vitamin B-12) 1,000 mcg tablet 1,000 mcg PO DAILY Supplement 12/13/21
carvedilol 6.25 mg tablet 6.25 mg PO BID #60 tabs 12/17/21
rosuvastatin 40 mg tablet 40 mg PO HS High cholesterol 12/29/21
acetaminophen 325 mg tablet 650 mg PO Q6HPRN PRN mild pain 04/05/22
potassium chloride 20 mEq tablet,extended release 20 meq PO QPM Electrolyte Repletion 04/05/22
apixaban 5 mg tablet (Eliquis) 5 mg PO BID #60 tabs 04/07/22
metformin 500 mg tablet 500 mg PO DAILY Diabetes 10/31/23
quetiapine 25 mg tablet (Seroquel) 25 mg PO HS Mental Health/Anxiety 10/31/23
amlodipine 10 mg tablet (Norvasc) 10 mg PO DAILY 01/20/25
bisacodyl 10 mg rectal suppository 10 mg ME DAILYPRN PRN if no bm aftr mom 01/20/25
furosemide 20 mg tablet (Lasix) 20 mg PO DAILY 01/20/25
magnesium hydroxide 400 mg/5 mL oral suspension (Milk of Magnesia) 30 ml PO HSPRN PRN if no bm by 3rd day 01/20/25
magnesium oxide 250 mg PO QPM 01/20/25
sertraline 25 mg tablet 75 mg PO DAILY 01/20/25
tramadol 25 mg tablet 25 mg PO Q8HPRN PRN back pain 01/20/25
Review of Systems
-
Unable to obtain full review of systems at this time due to: Dementia
Respiratory: Denies Trouble Breathing
Cardiac: Denies Chest Pain
Musculoskeletal: Reports Joint Pain (Right hip patient admits)
Physical Exam
Vital Signs
Vital Signs
Temp Pulse Resp BP Pulse Ox
98.2 F 71 14 146/70 3
01/20/25 07:21 01/20/25 07:21 01/20/25 07:21 01/20/25 07:21 01/20/25 07:21
Physical Exam
General: Other (Extremely hard of hearing)
Respiratory: Clear
Cardiac: S1/S2 and Regular Rhythm
GI: Soft and Non Tender
Musculoskeletal: Other (Mild edema lower extremities)
Skin: Warm and Other (Scratch chandler with abrasion bilateral altamirano)
Neuro: Awake, Alert, Cranial Nerves Intact and Other (Able to move all extremities, not able to lift up right leg); No Oriented
Psych: Apparent Dementia
Laboratory Results
-
01/20/25 05:32
01/20/25 05:32
Laboratory Results
Total Bilirubin 0.6 mg/dl (0.2-1.3) 01/20/25 05:32
AST 35 U/L (17-59) 01/20/25 05:32
ALT 28 U/L (0-50) 01/20/25 05:32
Alkaline Phosphatase 163 U/L (38-126) H 01/20/25 05:32
Impression/Plan
-
IMPRESSION/PLAN:
EKG-sinus rhythm, left axis deviation, right bundle branch block
X-ray of the hip reviewed by me-intertrochanteric fracture
# Traumatic right intertrochanteric fracture
Admit
Hold Eliquis
Pain control
Orthopedics consulted for surgery
Moderate but acceptable risk for surgery
Echocardiogram ordered
# Chronic HFrEF with recovered ejection fraction
Continue beta-jean, Lasix
Daily weights
Check echo
# Coronary disease with history of CABG-continue beta-blockers, statin
# Paroxysmal atrial fibrillation-continue Coreg. Hold Eliquis
# Hyperlipidemia-continue statin
# Hyperlipidemia-continue Coreg and much blood pressures
# History of gout-continue allopurinol
# Jjjirpky-Gnqh-Bjzsb and sliding scale coverage. Continue metformin today and hold tomorrow
# Peripheral artery disease with history of lower extremity stent and history of AAA repair
# History of stroke-continue statin. Hold Eliquis in anticipation for surgery. Resume when cleared by orthopedics to restart.
# Vascular dementia-continue Seroquel
# History of peptic ulcer disease-add Pepcid
# Ex-smoker
# DVT prophylaxis-SCDs
# DNR status per discussion with patient's son
Discussed with patient's son and updated
Part of this note was created using voice recognition system. Occasional wrong word or��sound alike� substitutions may have inadvertently occurred due to the inherent limitations of voice recognition software. If noted kindly bring it to my
attention for correction.
--- NOTE | 2025-01-20 09:24 | EDRN ---
this RN called the receiving unit and notified them that paper report was going to be tubed up
--- NOTE | 2025-01-20 10:39 | CM ---
Addendum entered by Zainab Guzmán 01/20/25 10:49:
Sent referral via [facility]
Original Note:
Patient resides @ [facility]; confirmed that Bed is on Hold
PLOF: facility caregiver reported that patient is independent with personal care; ambulates with a rolling walker
Plan: Return to [facility] when medially stable
[2025-01-20 11:04] LABS: Glucose - Point of Care 184 mg/dl (70-99)
--- NOTE | 2025-01-20 11:13 | PTCARENOTE ---
Received pt from ED via stretcher. Pt AAX2. KEWEENAW. Forgetful at times; bed alarm on. NSR on child monitor. Pox: 97% 2L NC. Call gandara within reach. Plan of care ongoing.
[2025-01-20] MEDS: COREG 6.25 MG PO ×2 (11:39→20:11)
[2025-01-20] MEDS: TYLENOL 650 MG PO ×3 (11:40→20:10)
[2025-01-20] MEDS: ZOLOFT 75 MG PO (11:40)
[2025-01-20] MEDS: LASIX 20 MG PO (11:40)
[2025-01-20] MEDS: GLUCOPHAGE 500 MG PO (11:40)
[2025-01-20] MEDS: NOVOLOG FLEXPEN-LOW RESISTANCE 1 UNITS SC (11:41)
[2025-01-20] MEDS: ZYLOPRIM 300 MG PO (11:42)
[2025-01-20] MEDS: NOVOLOG FLEXPEN-LOW RESISTANCE SC (16:56)
[2025-01-20 16:57] LABS: Glucose - Point of Care 138 mg/dl (70-99)
[2025-01-20] MEDS: MAGNESIUM OXIDE 250 MG PO (17:00)
[2025-01-20 17:15] LABS: Glucose - Point of Care 179 mg/dl (70-99)
--- NOTE | 2025-01-20 17:29 | CON.ORTHO ---
Consultation
-
Date/Time Consultation Performed: 01/20/25 515 PM
Consultation - Orthopedics
History
HPI: 84-year-old male history of vascular dementia presented to the emergency department complaints of right hip pain and inability to bear weight. Subsequently diagnosed with right intertrochanteric femur fracture. He was admitted to the
hospitalist service. Orthopedics was consulted for further evaluation and treatment. This evening patient really unable to provide any meaningful history. Per chart review, patient lives at rehab facility and reportedly fell out of his wheelchair
trying to go to the bathroom. He uses a combination of wheelchair and walker at baseline. He is on Eliquis and reportedly last dose was taken yesterday evening per emergency room department.
Allergies / Home Medications
Past medical history: CVA, dementia, A-fib, CHF, gout, peripheral vascular disease, chronic kidney disease
Past surgical history: Carpal tunnel, inguinal hernia surgery, CABG, bowel resection, AAA repair, kidney stent, lower extremity vascular stent
Family history: Not pertinent
Social history: Reported former smoker, lives in assisted living facility, recently
Allergy/AdvReac Type Severity Reaction Status Date / Time
NSAIDS (Non-Steroidal Allergy Verified 01/20/25 05:09
Anti-Inflamma DENIES ANY
ALLERGIES
rofecoxib Allergy Verified 01/20/25 05:09
DENIES ANY
ALLERGIES
Salicylates * Allergy Verified 01/20/25 05:09
DENIES ANY
ALLERGIES
�Medication �Instructions �Recorded
allopurinol 300 mg tablet 300 mg PO DAILY Gout #30 tabs 04/30/21
cyanocobalamin (vitamin B-12) 1,000 mcg PO DAILY Supplement 12/13/21
1,000 mcg tablet
rosuvastatin 40 mg tablet 40 mg PO HS High cholesterol 12/29/21
acetaminophen 325 mg tablet 650 mg PO Q6HPRN PRN mild pain 04/05/22
potassium chloride 20 mEq 20 meq PO QPM Electrolyte Repletion 04/05/22
tablet,extended release
metformin 500 mg tablet 500 mg PO DAILY Diabetes 10/31/23
quetiapine 25 mg tablet (Seroquel) 25 mg PO HS Mental Health/Anxiety 10/31/23
amlodipine 10 mg tablet (Norvasc) 10 mg PO DAILY Blood Pressure 01/20/25
apixaban 5 mg tablet (Eliquis) 5 mg PO BID Blood Clot 01/20/25
Prevention/Tx
bisacodyl 10 mg rectal suppository 10 mg [place] DAILYPRN PRN if no bm 01/20/25
aftr mom
carvedilol 6.25 mg tablet 6.25 mg PO BID Blood Pressure 01/20/25
furosemide 20 mg tablet (Lasix) 20 mg PO DAILY Fluid 01/20/25
Retention/Swelling
magnesium hydroxide 400 mg/5 mL 30 ml PO HSPRN PRN if no bm by 3rd 01/20/25
oral suspension (Milk of Magnesia)
magnesium oxide 250 mg PO QPM Supplement 01/20/25
sertraline 25 mg tablet 75 mg PO DAILY Mental Health 01/20/25
tramadol 25 mg tablet 25 mg PO Q8HPRN PRN back pain 01/20/25
Vital Signs / Lab Results
Temp Pulse Resp BP Pulse Ox
98.6 F 78 18 142/81 95
01/20/25 15:05 01/20/25 15:05 01/20/25 15:05 01/20/25 15:05 01/20/25 15:05
01/20/25 05:32
01/20/25 05:32
10 point review systems reviewed and negative unless otherwise stated
General: Pleasant, no acute distress at rest, confused, AAO x 1
Musculoskeletal right lower extremity
Skin intact, no erythema or ecchymotic staining
Extremity shortened externally rotated
Visible grimace with rotation of leg and palpation of groin and lateral trochanteric flare
No palpable ipsilateral knee effusion
Spontaneously moving toes
Brisk cap refill
No other areas of bony crepitus along bones or joint Center she exam
Diagnostic studies
X-rays right femur and hip independently viewed by myself. There is evidence of displaced right intertrochanteric femur fracture
Assessment / Plan
84-year-old male history of dementia with right intertrochanteric femur fracture. Had a long detailed discussion with the patient's son on the telephone regarding diagnosis and treatment options. We discussed postsurgical nonsurgical options.
After discussion mutually to proceed with surgical intervention in the form of right cephalomedullary nail fixation right intertrochanteric femur fracture. We discussed risks benefits and alternatives to surgery. Discussed the usual expected
perioperative postoperative course. No guarantees were given. After discussion verbal consent was obtained.
Nonweightbearing right lower extremity
N.p.o. at midnight
Please hold anticoagulation in preparation for OR
Pain control
Medical management per primary team
Plan: 2 OR tomorrow for operative fixation right intertrochanteric femur fracture pending OR availability medical clearance
[2025-01-20] MEDS: SENOKOT 17.2 MG PO (20:10)
[2025-01-20] MEDS: COLACE 100 MG PO (20:10)
[2025-01-20] MEDS: SEROQUEL 25 MG PO (22:20)
[2025-01-20] MEDS: CRESTOR 40 MG PO (22:20)
[2025-01-20 22:28] LABS: Glucose - Point of Care 133 mg/dl (70-99)
[2025-01-21] VITALS (17 sets, daily range): BP systolic 87–158; BP diastolic 46–78; PULSE 58; O2SAT 96; BMI 27.9
[2025-01-21] MEDS: TYLENOL PO ×3 (00:57→12:29)
[2025-01-21] MEDS: GLUCOPHAGE PO (07:33)
[2025-01-21 07:47] LABS: Glucose - Point of Care 111 mg/dl (70-99)
[2025-01-21] MEDS: LASIX 20 MG PO (07:52)
[2025-01-21] MEDS: ZYLOPRIM 300 MG PO (07:52)
[2025-01-21] MEDS: SENOKOT 17.2 MG PO ×2 (07:52→20:20)
[2025-01-21] MEDS: COLACE 100 MG PO ×2 (07:52→20:21)
[2025-01-21] MEDS: VITAMIN B-12 1000 MCG PO (07:52)
[2025-01-21] MEDS: NOVOLOG FLEXPEN-LOW RESISTANCE SC ×3 (07:52→15:59)
[2025-01-21] MEDS: COREG 6.25 MG PO ×2 (07:52→20:20)
[2025-01-21] MEDS: ZOLOFT 75 MG PO (07:52)
[2025-01-21] MEDS: TYLENOL 650 MG PO ×4 (08:03→23:03)
[2025-01-21 08:46] LABS: Hematocrit 40.5 % (39.0-52.0); Hemoglobin 13.2 g/dL (13.0-18.0); Mean Corp Hgb Conc. 32.6 g/dL (33.0-37.0); Mean Corpuscular Volume 82.0 fL (80.0-94.0); Platelet Count 178 10^3/uL (130-400); Red Cell Dist. Width 15.8 % (11.5-14.5)
--- NOTE | 2025-01-21 09:04 | W.PN.HOSP.TC ---
Today's Communication/Plan
-
for OR
Assessment / Plan
Assessment / Plan
84-year-old with right hip fracture
Echo 01/21/2024-mildly reduced LV systolic function with estimated EF 45 to 50%. Aortic sclerosis without stenosis. Mild MR. EF was 50 to 55% before but was 40 to 45% on 10/15/2021
EKG-sinus rhythm, left axis deviation, right bundle branch block
X-ray of the hip reviewed by me-intertrochanteric fracture
CVS: S1-S2 normal
Chest: CTA B/L
Abdomen: Soft, NT , Bowel sounds present
Extremities: No edema, right leg
Awake and alert. Denies pain
# Traumatic right intertrochanteric fracture
Hold Eliquis for surgery
Pain control
Moderate but acceptable risk for surgery
Echocardiogram noted
# Chronic HFrEF with recovered ejection fraction
Continue beta-jean, Lasix
Daily weights
# Coronary disease with history of CABG-continue beta-blockers, statin
# Paroxysmal atrial fibrillation- Continue Coreg. Hold Eliquis.
# Hyperlipidemia-Continue statin
# HTN-continue Coreg and watch blood pressures as he is going for procedure.
# History of gout-continue allopurinol
# Kuibtouw-Eyrc-Hehpw and sliding scale coverage. Continue metformin today and hold tomorrow
# Peripheral artery disease with history of lower extremity stent and history of AAA repair
# History of stroke-continue statin. Hold Eliquis in anticipation for surgery. Resume when cleared by orthopedics to restart.
# Vascular dementia-continue Seroquel
# History of peptic ulcer disease-H2 jean
# Ex-smoker
# DVT prophylaxis-SCDs
# DNR status per discussion with patient's son
Part of this note was created using voice recognition system. Occasional wrong word or��sound alike� substitutions may have inadvertently occurred due to the inherent limitations of voice recognition software. If noted kindly bring it to my
attention for correction.
Anticipated Discharge: 24 - 48 hours
Subjective/Interval History
-
Date of Service: January 21, 2025
Objective Data
-
Labs:
Laboratory Results
01/21/25
08:34
WBC 12.7 H
Hgb 13.2
Hct 40.5
Plt Count 178
Sodium Pending
Potassium Pending
Chloride Pending
Carbon Dioxide Pending
BUN Pending
Creatinine Pending
Glucose Pending
Calcium Pending
Vital Signs:
Vital Signs
Temp Pulse Resp BP Pulse Ox
98.0 F 64 18 158/72 96
01/21/25 07:35 01/21/25 07:52 01/21/25 07:35 01/21/25 07:52 01/21/25 07:35
I&O
01/20/25 01/21/25 01/22/25
06:59 06:59 06:59
Intake Total 440 / 440 480 / 480
Output Total 175 / 175
Balance 265 / 265 480 / 480
[2025-01-21 09:25] LABS: Blood Urea Nitrogen 15 mg/dl (9-20); Calcium 8.6 mg/dl (8.4-10.2); Carbon Dioxide 27 mmol/L (22-30); Chloride 105 mmol/L (98-107); Estimated Creatinine Clearance 89 ml/min; Glucose 136 mg/dl (70-99); Potassium 3.9 mmol/L (3.5-5.1); Sodium 136 mmol/L (135-145); eGFR > 60.00
[2025-01-21 09:29] LABS: Glycohemoglobin (HgbA1c) 5.8 % (4.0-5.6)
[2025-01-21 11:33] LABS: Glucose - Point of Care 125 mg/dl (70-99)
--- NOTE | 2025-01-21 14:20 | OR.RPT ---
Addendum entered and electronically signed by Michele Lemos MD 01/21/25 14:26:
DVT prophylaxis plan okay from my standpoint to resume Eliquis tomorrow for DVT prophylaxis
Plan to follow-up with myself outpatient in 2 to 3 weeks repeat clinical assessment repeat radiographs removal of sutures
Weightbearing as tolerated to the operative extremity mobilization with PT recommended
Original Note:
Operative Report
Operative Report
Date
January 21, 2025
Anesthesia Type:
Spinal
Operative Indications:
Right intertrochanteric femur fracture
Operative Findings :
Same
Complications:
None
Implants:
Gamma 125 degree x 10 mm short nail, 105 mm cephalomedullary screw, 37.5 x 5 mm distal interlocking screw
Procedure and Technique:
Insertion right cephalomedullary nail
INDICATIONS FOR PROCEDURE:
The patient is a 84-year-old male history of vascular dementia presented status post fall complaints of right hip pain inability to bear weight. He was subsequently diagnosed with a right intertrochanteric femur fracture. I had a long discussion
of the patient's son who is his medical power of employee benefits attorney regarding diagnosis and treatment options. Discussed with surgical nonsurgical options. After discussion we mutually like to proceed with surgical intervention in the form of right
cephalomedullary fixation right intertrochanteric femur fracture. Discussed risks benefits and alternatives to surgery. We discussed the usual expected perioperative postoperative course. No guarantees were given.
OPERATIVE PROCEDURE:
The patient was seen and identified in the preoperative holding area. The operative extremity was marked and all questions were addressed with the patient. Patient was taken to the operating room and provided anesthesia by the anesthesia team.
They were placed supine on a radiolucent fracture table. The nonoperative extremity was placed in a scissored position and well padded to the contralalteral post of the fracture table. Operative extremity was placed in a well-padded fracture boot.
Biplanar fluoroscopy confirmed appropriate reduction after axial traction, adduction and slight internal rotation of the operative extremity. Operative extremity was then prepped and draped in normal sterile fashion. Timeout was performed again
identifying the operative extremity correctly. Preoperative antibiotics were addressed.
A small incision was made several fingerbreadths proximal to the greater trochanter. Sharp dissection was carried through skin and subcutaneous tissues and deep fascial layers. Guidepin was then inserted under biplanar fluoroscopic guidance
through the tip of the greater trochanter in accordance with the implant's operative technique. This was inserted to a depth just distal to the lesser trochanter. Proximal opening reamer was then utilized. A short cephalomedullary nail was then
inserted to the appropriate depth. Trocar was then inserted through the aiming arm. Sharp dissection was then carried through skin and subcutaneous tissues as well as deep fascial layers for an additional stab incision for the cephalomedullary
screw. Guidewire was inserted through the trocar into the femoral neck and head. Appropriate position was confirmed under biplanar fluoroscopy. Attention was made to minimize the tip apex distance. Measurements were obtained for the
cephalomedullary screw. Cannulated drill was then utilized to the appropriate depth followed by the insertion of cannulated cephalomedullary screw. Appropriate final position of the screw within the confines of the femoral neck and head was
confirmed again on biplanar fluoroscopy. Additional trocar was then inserted through the aiming arm for the distal interlocking screw. Sharp dissection was carried through skin, subcutaneous tissues and deep fascial layers. Appropriate length
interlocking screw was then drilled and inserted. Final appropriate positioning was confirmed again on biplanar fluoroscopy. Satisfied with the extent of surgery, wounds were copiously irrigated with normal saline solution and closed in a layered
fashion utilizing 0 Vicryl for deep fascial layer, 2-0 Vicryl for subcu cutaneous layer and roscoe for skin. Sterile dressings were applied. Anesthesia was reversed and patient was taken to the operating room in a stable condition.
Disposition:
PACU stable condition
--- NOTE | 2025-01-21 14:33 | CM ---
CM reviewed chart, patient off floor, for OR today. Patient LTC resident at [facility], plan return when medically stable. CM will continue to follow for all discharge planning needs.
Plan; OR today, return to [facility] when stable
[2025-01-21 15:25] LABS: Glucose - Point of Care 127 mg/dl (70-99)
[2025-01-21] MEDS: NSS 1000 IV (15:59)
--- NOTE | 2025-01-21 16:09 | PTCARENOTE ---
Received pt from PACU via bed. Pt AAOX2. IVFs infusing without difficulty. Pt denies pain. POx: 97% RA. Son at bedside. Call gandara within reach. Plan of care ongoing.
[2025-01-21] MEDS: MAGNESIUM OXIDE 250 MG PO (17:05)
[2025-01-21] MEDS: SEROQUEL 25 MG PO (20:20)
[2025-01-21] MEDS: PEPCID 20 MG PO (20:21)
[2025-01-21] MEDS: CRESTOR 40 MG PO (20:21)
[2025-01-21 23:02] LABS: Glucose - Point of Care 243 mg/dl (70-99)
[2025-01-21] MEDS: ROXICODONE 5 MG PO (23:15)
[2025-01-22] VITALS (8 sets, daily range): BP systolic 122–141; BP diastolic 48–64; PULSE 60; BMI 28.3
[2025-01-22] MEDS: NSS 1000 IV (02:00)
[2025-01-22] MEDS: TYLENOL PO ×2 (03:35→23:54)
[2025-01-22 06:51] LABS: Hematocrit 35.2 % (39.0-52.0); Hemoglobin 11.6 g/dL (13.0-18.0); Mean Corp Hgb Conc. 33.0 g/dL (33.0-37.0); Mean Corpuscular Volume 81.3 fL (80.0-94.0); Platelet Count 152 10^3/uL (130-400); Red Cell Dist. Width 15.3 % (11.5-14.5)
[2025-01-22 06:55] LABS: Glucose - Point of Care 151 mg/dl (70-99)
[2025-01-22 07:14] LABS: Blood Urea Nitrogen 18 mg/dl (9-20); Calcium 8.0 mg/dl (8.4-10.2); Carbon Dioxide 23 mmol/L (22-30); Chloride 105 mmol/L (98-107); Estimated Creatinine Clearance 89 ml/min; Glucose 173 mg/dl (70-99); Potassium 4.2 mmol/L (3.5-5.1); Sodium 133 mmol/L (135-145); eGFR > 60.00
[2025-01-22] MEDS: TYLENOL 650 MG PO ×3 (07:47→19:56)
[2025-01-22] MEDS: COREG 6.25 MG PO ×2 (07:47→19:55)
[2025-01-22] MEDS: GLUCOPHAGE 500 MG PO (07:47)
[2025-01-22] MEDS: COLACE 100 MG PO ×2 (07:48→19:55)
[2025-01-22] MEDS: VITAMIN B-12 1000 MCG PO (07:48)
[2025-01-22] MEDS: SENOKOT 17.2 MG PO ×2 (07:48→19:55)
[2025-01-22] MEDS: ZOLOFT 75 MG PO (07:48)
[2025-01-22] MEDS: LASIX 20 MG PO (07:48)
[2025-01-22] MEDS: NOVOLOG FLEXPEN-LOW RESISTANCE 1 UNITS SC ×3 (07:49→17:48)
[2025-01-22] MEDS: ZYLOPRIM 300 MG PO (07:51)
--- NOTE | 2025-01-22 10:35 | CM ---
Addendum entered by Eliza Randle RN 01/22/25 14:54:
IMM reviewed and placed on chart.
Original Note:
Reviewed the chart notes. Patient is a jail resident of [facility]. Updated clinicals sent via [facility] to [facility]. CM continues to be available to patient/family and is monitoring medical plan for needs at discharge.
Plan: Discharge back to [facility] when medically stable. No precert required.
Call report to: [phone]
Fax report to: [phone]
--- NOTE | 2025-01-22 10:50 | W.PN.HOSP.TC ---
Today's Communication/Plan
-
Restart Eliquis
PT OT
Possible discharge tomorrow per case management
Assessment / Plan
Assessment / Plan
84-year-old with right hip fracture
Echo 01/21/2024-mildly reduced LV systolic function with estimated EF 45 to 50%. Aortic sclerosis without stenosis. Mild MR. EF was 50 to 55% before but was 40 to 45% on 10/15/2021
EKG-sinus rhythm, left axis deviation, right bundle branch block
X-ray of the hip reviewed by me-intertrochanteric fracture
CVS: S1-S2 normal
Chest: CTA B/L
Abdomen: Soft, NT , Bowel sounds present
Extremities: Right leg-surgical site with no bleeding
Awake and alert. Denies pain
# Traumatic right intertrochanteric fracture
Restart Eliquis
Weightbearing as tolerated
Physical therapy
Follow-up with orthopedics 2 to 3 weeks for clinical assessment and removal of sutures
# Chronic HFrEF with recovered ejection fraction
Continue beta-jean, Lasix
Daily weights
# Coronary disease with history of CABG-continue beta-blockers, statin
# Paroxysmal atrial fibrillation- Continue Coreg. Hold Eliquis.
# Hyperlipidemia-Continue statin
# HTN-continue Coreg and watch blood pressures as he is going for procedure.
# History of gout-continue allopurinol
# Osbxiwtc-Exxf-Sjbrw and sliding scale coverage. Continue metformin today and hold tomorrow
# Peripheral artery disease with history of lower extremity stent and history of AAA repair
# History of stroke-continue statin. Restart Eliquis per orthopedics
# Vascular dementia-continue Seroquel
# History of peptic ulcer disease-H2 jean
# Ex-smoker
# DVT prophylaxis-SCDs
# DNR status per discussion with patient's son
Discussed with patient's son and updated
Discussed with case management
Discussed with nursing
Part of this note was created using voice recognition system. Occasional wrong word or��sound alike� substitutions may have inadvertently occurred due to the inherent limitations of voice recognition software. If noted kindly bring it to my
attention for correction.
Anticipated Discharge: Within 24 hours
Subjective/Interval History
-
Date of Service: January 22, 2025
Objective Data
-
Labs:
Laboratory Results
01/22/25
06:02
WBC 9.4
Hgb 11.6 L
Hct 35.2 L
Plt Count 152
Sodium 133 L
Potassium 4.2
Chloride 105
Carbon Dioxide 23
BUN 18
Creatinine 0.6 L
Glucose 173 H
Calcium 8.0 L
Vital Signs:
Vital Signs
Temp Pulse Resp BP Pulse Ox
97.6 F 66 16 141/64 92
01/22/25 07:10 01/22/25 07:10 01/22/25 07:10 01/22/25 07:10 01/22/25 07:10
I&O
01/21/25 01/22/25 01/23/25
06:59 06:59 06:59
Intake Total 440 / 440 2119
Output Total 175 / 175
Balance 265 / 265 2119
--- NOTE | 2025-01-22 11:47 | W.PN.ORTHO ---
Today's Communication / Plan
-
84-year-old male postop day 1 status post right cephalomedullary nail fixation right intertrochanteric femur fracture doing well
Weightbearing as tolerated right lower extremity
PT OT
Pain control
Medical management per primary team
DVT prophylaxis: Okay to resume previously prescribed Eliquis
Plan: Follow-up with myself outpatient 2 to 3 weeks repeat clinical assessment repeat radiographs plan removal of roscoe
Subjective
.
.:
Patient resting comfortably. Pleasantly confused. Per nursing was really unable to mobilize with physical therapy today.
Vital Signs and Labs
.
Vital Signs and Labs:
Lab Results
01/22/25 06:02
01/22/25 06:02
Temp Pulse Resp BP Pulse Ox
97.6 F 66 16 141/64 92
01/22/25 07:10 01/22/25 07:10 01/22/25 07:10 01/22/25 07:10 01/22/25 07:10
Physical Exam
-
Musculoskeletal right lower extremity
Dressings with minimal bloody drainage
Moderate swelling right thigh
Patient spontaneously moving toes
Post cap refill
[2025-01-22 12:13] LABS: Glucose - Point of Care 175 mg/dl (70-99)
[2025-01-22 16:53] LABS: Glucose - Point of Care 152 mg/dl (70-99)
[2025-01-22] MEDS: MAGNESIUM OXIDE 250 MG PO (17:49)
[2025-01-22] MEDS: CRESTOR 40 MG PO (19:54)
[2025-01-22] MEDS: PEPCID 20 MG PO (19:55)
[2025-01-22] MEDS: ELIQUIS 5 MG PO (19:55)
[2025-01-22] MEDS: SEROQUEL 25 MG PO (19:55)
[2025-01-22] MEDS: ROXICODONE 5 MG PO (19:55)
[2025-01-22 22:11] LABS: Glucose - Point of Care 150 mg/dl (70-99)
[2025-01-23 03:00] VITALS: BP 147/58
[2025-01-23] MEDS: ROXICODONE 5 MG PO ×2 (05:45→13:15)
[2025-01-23] MEDS: TYLENOL 650 MG PO ×2 (05:45→13:15)
[2025-01-23 06:00] VITALS: BMI 29.4
[2025-01-23 06:25] LABS: Hematocrit 31.3 % (39.0-52.0); Hemoglobin 10.3 g/dL (13.0-18.0); Mean Corp Hgb Conc. 32.9 g/dL (33.0-37.0); Mean Corpuscular Volume 81.7 fL (80.0-94.0); Platelet Count 153 10^3/uL (130-400); Red Cell Dist. Width 15.4 % (11.5-14.5)
[2025-01-23 06:42] LABS: Blood Urea Nitrogen 14 mg/dl (9-20); Calcium 7.6 mg/dl (8.4-10.2); Carbon Dioxide 26 mmol/L (22-30); Chloride 107 mmol/L (98-107); Estimated Creatinine Clearance 89 ml/min; Glucose 114 mg/dl (70-99); Potassium 3.9 mmol/L (3.5-5.1); Sodium 135 mmol/L (135-145); eGFR > 60.00
[2025-01-23 07:04] LABS: Glucose - Point of Care 110 mg/dl (70-99)
[2025-01-23 07:35] VITALS: BP 141/54
[2025-01-23] MEDS: NOVOLOG FLEXPEN-LOW RESISTANCE SC ×2 (08:40→12:46)
[2025-01-23] MEDS: COLACE 100 MG PO (08:42)
[2025-01-23] MEDS: SENOKOT 17.2 MG PO (08:42)
[2025-01-23] MEDS: COREG 6.25 MG PO (08:42)
[2025-01-23] MEDS: GLUCOPHAGE 500 MG PO (08:42)
[2025-01-23] MEDS: ZYLOPRIM 300 MG PO (08:42)
[2025-01-23] MEDS: ELIQUIS 5 MG PO (08:42)
[2025-01-23] MEDS: LASIX 20 MG PO (08:42)
[2025-01-23] MEDS: VITAMIN B-12 1000 MCG PO (08:42)
[2025-01-23] MEDS: ZOLOFT 75 MG PO (08:43)
--- NOTE | 2025-01-23 10:31 | W.DCSUMMARY ---
Addendum entered and electronically signed by Naeem Barrera MD 01/23/25 15:16:
Anemia -suspect sec to post op Acute blood loss anemia
Original Note:
Discharge Summary
Discharge Data
Date of Admission: 01/20/25
Date of Discharge: 01/23/25
-
Pending Results: No
Hospital Course
Primary diagnosis:
Mechanical fall leading to right intertrochanteric femur fracture status post right cephalomedullary nail fixation
Secondary diagnosis:
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
Coronary artery disease s/p prior CABG
Paroxysmal atrial fibrillation
Hyperlipidemia
Essential hypertension
History of
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
History of stroke
Vascular dementia
Hospital course:
Patient 3 months ago moved into [facility] [place] [facility]. He fell out off his wheelchair and sustained right femur fracture and was fixed with intramedullary nailing. No immediate postop complication noted. His pain was adequately controlled.
He was seen by physical therapy who recommends rehab and he was discharged to rehab.
He had no decompensation from his heart standpoint during the stay here. He was resumed on all his medications as before without changes. Oral regimen was added.
Creatinine was okay. He had postop H&H drop. Discharge hemoglobin was 10.3 advised to repeat another hemoglobin next week.
With regards to DVT prophylaxis he was put back on his Eliquis dose for A-fib.
Today patient was bit sleepy but arousable oriented to self. No agitation. Denied any shortness of breath.
Afebrile. Not hypoxic. Blood pressure 141/54. Chest was clear anteriorly. Abdomen is soft. No obvious external bleeding noted on dressing on the right hip.
Medically stable for DC back to facility today.
Total time of DC 35 min
Consultants on board:
Orthopedics-Dr. Michele Lemos
Discharge Plan
-
Patient Disposition: Senior Living/SNF
Discharge Diagnosis/Procedures: Traumatic right intertrochanteric fracture status post surgery 01/21/2025
Chronic HFreF
Coronary artery disease with history of CABG
Paroxysmal atrial fibrillation
Hyperlipidemia
Hypertension
History gout
Diabetes
Peripheral artery disease
History of stroke
Rest of dementia
Peptic ulcer disease
Diet: 2 Gram Sodium and Restrict fluids to 64 oz
Activity: With assistance and As tolerated
Driving Restrictions: No driving
Other Services: PT and OT
Specialty Instructions: Weigh Daily- Call MD for wt gain/loss 3 lbs overnight/5 lbs in 1 week
Activity Restrictions/Additional Instructions:
Follow-up post hip precautions
Referrals:
David Shelby MD [Family Provider]
Michele Lemos MD [Active, Orthopedics] - in two to three weeks
Prescriptions:
New
docusate sodium 100 mg Capsule
100 mg PO BID Qty: 1 0RF
sennosides [Jessica-jacob] 8.6 mg Tablet
17.2 mg PO BID Qty: 1 0RF
Continued
allopurinol 300 MG tablet
300 mg PO DAILY Qty: 30 0RF
cyanocobalamin (vitamin B-12) 1,000 mcg Tablet
1,000 mcg PO DAILY
rosuvastatin 40 MG tablet
40 mg PO HS
acetaminophen 325 mg Tablet
650 mg PO Q6HPRN PRN (Reason: mild pain)
potassium chloride 20 mEq Tablet Extended Release
20 meq PO QPM
quetiapine [Seroquel] 25 mg Tablet
25 mg PO HS
metformin 500 mg Tablet
500 mg PO DAILY
magnesium hydroxide [Milk of Magnesia] 400 mg/5 mL Suspension
30 ml PO HSPRN PRN (Reason: if no bm by 3rd day)
bisacodyl 10 mg Suppository
10 mg MD DAILYPRN PRN (Reason: if no bm aftr mom)
sertraline 25 mg Tablet
75 mg PO DAILY
tramadol 25 mg Tablet
25 mg PO Q8HPRN PRN (Reason: back pain)
amlodipine [Norvasc] 10 mg Tablet
10 mg PO DAILY
furosemide [Lasix] 20 mg Tablet
20 mg PO DAILY
magnesium oxide 250 mg magnesium Tablet
250 mg PO QPM
carvedilol 6.25 mg tablet
6.25 mg PO BID
Eliquis 5 mg tablet
5 mg PO BID
Discharge Orders:
Discharge Patient (As Directed); Ordered 01/23/25
Ordered By: Naeem Barrera
Discharge Date and Time
Print Language: MALDIVIAN
[2025-01-23 11:25] VITALS: BP 126/51
--- NOTE | 2025-01-23 11:55 | CM ---
Addendum entered by Zainab Guzmán 01/23/25 14:42:
Ambulance sisal picker scheduled at 4:30; facility liaison notified
Addendum entered by Zainab Guzmán 01/23/25 13:01:
Plan: Discharge back to [facility] today via Ambulance
Report # [phone]

Original Note:
Plan: Discharge back to [facility] today
Call report to: [phone]
Fax report to: [phone]
[2025-01-23 12:13] LABS: Glucose - Point of Care 130 mg/dl (70-99)
[2025-01-23] MEDS: PREVNAR 20 0.5 ML IM (13:44)
--- NOTE | 2025-01-23 14:07 | PN.CDI ---
CDI
- -
CDI:
Physician Documentation Request
Admit Date: 01/20/25 08:25
Dear Doctor Bruce,
Please review the following and provide your response in the progress notes.
Clinical Indicators:
Pt admitted with Traumatic right intertrochanteric fracture /p fixation on 01/21
Documented per discharge summary,' He had postop H&H drop. Discharge hemoglobin was 10.3 advised to repeat another hemoglobin next week....'
Trended Hemoglobin/Hematocrit below
01/20/25 01/21/25 01/23/25
05:32 08:34 05:23
Hgb 15.0 13.2 10.3 L
Hct 44.9 40.5 31.3 L
Please provide a diagnosis for the above laboratory findings:
Acute blood loss anemia
Abnormal lab finding only
Other ( please specify)
Use of terms such as suspected, likely, concern for, or probable (associated with a specific diagnosis that is being evaluated, monitored, or treated as if it exists) are acceptable and can be coded in the inpatient setting, when documented at the
time of discharge.
Thank you,
Perla Schmidt RN
CDI Specialist
[place] [facility]
Please use your independent medical judgment in providing your response.
[2025-01-23 15:10] VITALS: BP 139/53
== END 2025-01-23 16:35 | DRG 481 ==
LOC: 2 SOUTH 08:25
PROVIDERS: ADMITTING PHYSICIAN Hospitalist; ATTENDING PHYSICIAN Internal Medicine; CONSULT PHYSICIAN Orthopaedic Surgery; EMERGENCY PHYSICIAN Emergency Medicine; FAMILY PHYSICIAN Internal Medicine
PROC: 0QS636Z Reposition Right Upper Femur with Intramedullary Internal Fixation Device, Percutaneous Approach (ICD-10-PCS; 2025-01-21)
DX: S72.141A Displaced intertrochanteric fracture of right femur, initial encounter for closed fracture (principal); D62 Acute posthemorrhagic anemia; I50.22 Chronic systolic (congestive) heart failure; W05.0XXA Fall from non-moving wheelchair, initial encounter; M10.9 Gout, unspecified; E11.51 Type 2 diabetes mellitus with diabetic peripheral angiopathy without gangrene; E78.00 Pure hypercholesterolemia, unspecified; F01.50 Vascular dementia, unspecified severity, without behavioral disturbance, psychotic disturbance, mood disturbance, and anxiety; I11.0 Hypertensive heart disease with heart failure; I48.0 Paroxysmal atrial fibrillation; I45.10 Unspecified right bundle-branch block; I25.10 Atherosclerotic heart disease of native coronary artery without angina pectoris; I70.0 Atherosclerosis of aorta; Z66 Do not resuscitate; Z95.820 Peripheral vascular angioplasty status with implants and grafts; Z95.1 Presence of aortocoronary bypass graft; Z87.891 Personal history of nicotine dependence; Z86.73 Personal history of transient ischemic attack (TIA), and cerebral infarction without residual deficits; Z88.8 Allergy status to other drugs, medicaments and biological substances; Z79.84 Long term (current) use of oral hypoglycemic drugs; Z79.01 Long term (current) use of anticoagulants; Z79.899 Other long term (current) drug therapy
CPT/HCPCS: 70450; 73502; 73552; 76000; 80048; 80053; 82962; 83036; 85025; 85027; 86850; 86900; 86901; 87070; 90677; 93005; 93306; 96374; 96375; 96376; 97163; 97167; 99285; C1713; G0009

== ENCOUNTER 2025-03-19 05:29 | Emergency (ER) | payer MEDICARE, OTHER, SELFPAY ==
[2025-03-19 05:30] VITALS: BP 158/65
[2025-03-19 05:32] VITALS: BP 158/65
[2025-03-19 05:39] VITALS: BMI 27.3
[2025-03-19 05:56] LABS: Hematocrit 36.8 % (39.0-52.0); Hemoglobin 11.9 g/dL (13.0-18.0); Mean Corp Hgb Conc. 32.3 g/dL (33.0-37.0); Mean Corpuscular Volume 79.0 fL (80.0-94.0); Nucleated Red Blood Cells % 0 % (-); Platelet Count 193 10^3/uL (130-400); Red Cell Dist. Width 15.9 % (11.5-14.5)
[2025-03-19 06:00] VITALS: BP 140/64
[2025-03-19 06:16] LABS: ALT (SGPT) 26 U/L (0-50); AST (SGOT) 34 U/L (17-59); Albumin 3.1 g/dl (3.5-5.0); Alkaline Phosphatase 190 U/L (38-126); Blood Urea Nitrogen 13 mg/dl (9-20); Calcium 8.6 mg/dl (8.4-10.2); Carbon Dioxide 28 mmol/L (22-30); Chloride 106 mmol/L (98-107); Estimated Creatinine Clearance 73 ml/min; Glucose 136 mg/dl (70-99); Potassium 4.1 mmol/L (3.5-5.1); Sodium 137 mmol/L (135-145); Total Protein 6.4 g/dl (6.3-8.2); eGFR > 60.00
--- NOTE | 2025-03-19 06:30 | ED.GENMED ---
History of Present Illness
General
Chief Complaint: Fall
Time Seen by Provider: 03/19/25 06:10
History of Present Illness
History of Present Illness:
84-year-old male presents to the emergency department for evaluation after a fall at his nursing facility, unwitnessed. Patient has dementia and is unable to provide any history. He denies any complaints. Not on blood thinners
Past History
Past History
ED Past Medical History: CAD, CHF, HTN, Hypercholesterolemia, NIDDM, Psychiatric (dementia) and Other (gout)
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
Patient has exhibited threatening behavior?: No
Social History
Tobacco: Former smoker (cessation at 35 y/o)
Alcohol: None
Drug: None
Personal:
Living: with family
Employment: Retired
Family History
Family History: Other
Review of Systems
Review of Systems
Allergies reviewed?: Yes
All Other Systems: ROS reviewed and negative except as documented in HPI and ROS
Phy Exam
Physical Exam
Physical Exam:
GEN: Well appearing, NAD, WDWN
HEENT: Minus cephalohematoma midline parietal scalp, no crepitus, oral mucosa moist, no scleral icterus
Cardiac: Regular rate and rhythm, no murmur
Lung: No respiratory distress, no tachypnea
MSK: No gross deformity or injuries, bilateral hip range of motion with no crepitus or pain, no midline C/T/L-spine tenderness
Skin: Good color, no pallor or jaundice, no rashes
Neuro: Alert, pleasantly confused, follows commands, moves all extremities freely
Psych: Calm, cooperative
Course
Orders/Labs/Results
Orders:
Orders
03/19/25 05:44
CMP [Comprehensive Metabolic Panel] Urgent
Complete Blood Count/With Diff Urgent
03/19/25 06:29
CT Head W/o Iv Contrast Urgent
Comment:
Reason For Exam: fall
Abnormal Lab Results
03/19/25
05:44
RBC 4.66 L 10^6/uL
(4.70-6.10)
Hgb 11.9 L g/dL
(13.0-18.0)
Hct 36.8 L %
(39.0-52.0)
MCV 79.0 L fL
(80.0-94.0)
MCH 25.5 L pg
(27.0-31.0)
MCHC 32.3 L g/dL
(33.0-37.0)
RDW 15.9 H %
(11.5-14.5)
Abs Immat Gran (auto) 0.1 H 10^3/uL
(0-0.05)
Absolute Monos (auto) 1.1 H 10^3/uL
(0.1-0.6)
Absolute Eos (auto) 1.6 H 10^3/uL
(0-0.7)
Monocytes % 10.0 H %
(1.7-9.3)
Eosinophils % 14.5 H %
(0-6)
Glucose 136 H mg/dl
(70-99)
Alkaline Phosphatase 190 H U/L
(38-126)
Albumin 3.1 L g/dl
(3.5-5.0)
03/19/25 05:44
03/19/25 05:44
Vital Signs
Initial and Last Documented VS:
Initial Vital Signs
BP
158/65
03/19/25 05:30
Last Documented Vital Signs
Temp Pulse Resp BP Pulse Ox
97.9 F 58 15 151/62 98
03/19/25 05:32 03/19/25 09:00 03/19/25 09:00 03/19/25 09:00 03/19/25 09:00
MDM/Problems Addressed
MDM/Problems Addressed:
Labs and head CT unremarkable. Patient will be discharged back to his nursing facility. Son made aware of ED evaluation and stability of patient
*Pulse Oximetry
SaO2: 95
Oxygen Mode of Delivery: Room air
Patient hypoxic: no
*Critical Care Note
Total Time (30-74mins, 75-104mins- exclusive of procedures): Not Applicable
ED Attending Note
-
Portions of this chart may have been created with voice recognition software.� Occasional wrong word or��sound alike� substitutions may have occurred due to the inherent limitations of voice recognition software.
Discharge Plan
Departure
Patient Disposition: Home (Routine Discharge)
Date of Disposition: 03/19/25
Time of Disposition: 07:05
Patient with high blood pressure during this ER visit?: No
Discharge Problem:
Fall
Instructions: Preventing falls in adults
Prescriptions:
No Action
allopurinol 300 MG tablet
300 mg PO DAILY Qty: 30 0RF
cyanocobalamin (vitamin B-12) 1,000 mcg Tablet
1,000 mcg PO DAILY
rosuvastatin 40 MG tablet
40 mg PO HS
acetaminophen 325 mg Tablet
650 mg PO Q6HPRN PRN (Reason: mild pain)
potassium chloride 20 mEq Tablet Extended Release
20 meq PO QPM
quetiapine [Seroquel] 25 mg Tablet
25 mg PO HS
metformin 500 mg Tablet
500 mg PO DAILY
magnesium hydroxide [Milk of Magnesia] 400 mg/5 mL Suspension
30 ml PO HSPRN PRN (Reason: if no bm by 3rd day)
bisacodyl 10 mg Suppository
10 mg NV DAILYPRN PRN (Reason: if no bm aftr mom)
sertraline 25 mg Tablet
75 mg PO DAILY
tramadol 25 mg Tablet
25 mg PO Q8HPRN PRN (Reason: back pain)
amlodipine [Norvasc] 10 mg Tablet
10 mg PO DAILY
furosemide [Lasix] 20 mg Tablet
20 mg PO DAILY
magnesium oxide 250 mg magnesium Tablet
250 mg PO QPM
carvedilol 6.25 mg tablet
6.25 mg PO BID
Eliquis 5 mg tablet
5 mg PO BID
docusate sodium 100 mg Capsule
100 mg PO BID Qty: 1 0RF
sennosides [Jessica-jacob] 8.6 mg Tablet
17.2 mg PO BID Qty: 1 0RF
Referrals:
David Shelby MD [Family Provider]
Interventions
Interventions:
*Risk Screen - Suicide Last Done: 03/19/25 05:50
*General Assessment Last Done: 03/19/25 05:50
*Neglect/Abuse Screening Last Done: 03/19/25 05:50
*ED- Fall Risk Assessment Last Done: 03/19/25 05:50
*ED COVID-19 Vaccine History Last Done: 03/19/25 05:50
*ED Influenza Vaccine History Last Done: 03/19/25 05:50
*Nursing Disposition Last Done: 03/19/25 09:18
ED-Musculoskeletal Assessment Last Done: 03/19/25 05:46
ED- Neurological Assessment Last Done: 03/19/25 05:43
ED-Skin Assessment Last Done: 03/19/25 05:46
Discharge Date and Time
Discharge Date/Time: 03/19/25 09:19
Print Language: SLOVAK
[2025-03-19 07:04] VITALS: BP 148/69
[2025-03-19 08:00] VITALS: BP 146/60
[2025-03-19 09:00] VITALS: BP 151/62
== END 2025-03-19 09:19 | disposition home or self-care (01) ==
LOC: EMR 05:29
PROVIDERS: Student in an Organized Health Care Education/Training Program; EMERGENCY PHYSICIAN Emergency Medicine; FAMILY PHYSICIAN Internal Medicine
DX: Z04.3 Encounter for examination and observation following other accident (principal); F03.90 Unspecified dementia, unspecified severity, without behavioral disturbance, psychotic disturbance, mood disturbance, and anxiety; E11.9 Type 2 diabetes mellitus without complications; I25.810 Atherosclerosis of coronary artery bypass graft(s) without angina pectoris; I11.0 Hypertensive heart disease with heart failure; I50.9 Heart failure, unspecified; E78.00 Pure hypercholesterolemia, unspecified; M10.9 Gout, unspecified; Z79.01 Long term (current) use of anticoagulants; Z79.84 Long term (current) use of oral hypoglycemic drugs; Z95.1 Presence of aortocoronary bypass graft; Z87.891 Personal history of nicotine dependence; W19.XXXA Unspecified fall, initial encounter; Y92.129 Unspecified place in nursing home as the place of occurrence of the external cause
CPT/HCPCS: 99284; 70450; 80053; 85025

== ENCOUNTER 2025-04-23 14:59 | Inpatient (IN) | payer OTHER, SELFPAY ==
[2025-04-23] VITALS (7 sets, daily range): BP systolic 79–104; BP diastolic 41–72; BMI 27.2
[2025-04-23 10:09] LABS: Hematocrit 47.0 % (39.0-52.0); Hemoglobin 14.9 g/dL (13.0-18.0); Mean Corp Hgb Conc. 31.7 g/dL (33.0-37.0); Mean Corpuscular Volume 81.0 fL (80.0-94.0); Nucleated Red Blood Cells % 0 % (-); Platelet Count 300 10^3/uL (130-400); Red Cell Dist. Width 17.9 % (11.5-14.5)
[2025-04-23] MEDS: PROTONIX IV 80 MG IV (10:17)
[2025-04-23 10:19] LABS: AST (SGOT) 27 U/L (17-59); Albumin 4.2 g/dl (3.5-5.0); Alkaline Phosphatase 155 U/L (38-126); Blood Urea Nitrogen 24 mg/dl (9-20); Calcium 9.8 mg/dl (8.4-10.2); Carbon Dioxide 24 mmol/L (22-30); Chloride 101 mmol/L (98-107); Estimated Creatinine Clearance 41 ml/min; Glucose 282 mg/dl (70-99); Lipase 140 U/L (23-300); Potassium 5.0 mmol/L (3.5-5.1); Sodium 137 mmol/L (135-145); Total Protein 8.0 g/dl (6.3-8.2); eGFR 54.17
[2025-04-23] MEDS: NSS 1000 IV (10:19)
--- NOTE | 2025-04-23 10:21 | ED.GENMED ---
History of Present Illness
<Francois Rogers Jr., PA-C - Last Filed: 04/23/25 14:33>
General
Chief Complaint: Abdominal Symptoms
Source: ambulance crew and senior living
Exam Limitations: dementia
Time Seen by Provider: 04/23/25 09:55
Nursing documentation reviewed up to this point in time: agreed with
History of Present Illness
History of Present Illness:
84-year-old male with significant Alzheimer's dementia, A-fib currently on Eliquis CAD heart failure abdominal aortic aneurysm diabetes presenting to the emergency department today with coffee-ground emesis and generalized abdominal pain starting
this morning according to nursing staff. He is not able to give any additional historical information. Does say that his abdomen still hurts.
Past History
<Francois Rogers Jr., PA-C - Last Filed: 04/23/25 14:33>
Past History
ED Past Medical History: CAD, CHF, HTN, Hypercholesterolemia, NIDDM, Psychiatric (dementia) and Other (gout)
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
Patient has exhibited threatening behavior?: No
Social History
Tobacco: Former smoker (cessation at 35 y/o)
Alcohol: None
Drug: None
Personal:
Living: with family
Employment: Retired
Family History
Family History: Other
Review of Systems
<Francois Rogers Jr., PA-C - Last Filed: 04/23/25 14:33>
Review of Systems
Allergies reviewed?: Yes
Unable to obtain full review of systems at this time due to: dementia
All Other Systems: ROS reviewed and negative except as documented in HPI and ROS
Phy Exam
<Francois Rogers Jr., PA-C - Last Filed: 04/23/25 14:33>
Physical Exam
Physical Exam:
GENERAL: Alert , in no apparent distress
EYE: pupils equal and reactive
NECK: Supple, no significant adenopathy.
ENT: o/p clr, mmm.
CARDIAC: Regular rate and rhythm .
LUNGS: Clear breath sounds bilaterally, no acute respiratory distress, no wheezes/rales/rhonchi
ABDOMEN: Diffuse pain throughout the abdomen to light palpation
NEUROLOGICAL: Alert and oriented, no focal neuro deficits
SKIN: Warm and dry, skin intact.
MUSCULOSKELETAL: No edema, well perfused.
PSYCH: Normal and appropriate interaction.
Course
<Francois Rogers Jr., KALIA - Last Filed: 04/23/25 14:33>
Orders/Labs/Results
Orders:
Orders
04/23/25 09:54
Type And Crossmatch [Type+Screen] Urgent
Complete Blood Count/With Diff Urgent
Comprehensive Metabolic Panel Urgent
Lipase Urgent
04/23/25 10:13
CT Abd/Pel (IV only)-DH only Urgent
Comment:
Reason For Exam: abd pain coffee ground emesis
Pantoprazole [Protonix IV] 80 mg IV NOW STA
04/23/25 10:18
0.9% Sodium Chloride 1000 ml [Nss] 1,000 ml IV BOLUS
04/23/25 11:07
Fentanyl Citrate/Pf [Sublimaze] 50 mcg IV NOW STA
04/23/25 11:10
Lactic Acid Urgent
04/23/25 12:44
Case Management Consult ONCE
Case Management Consult: Hospice
Hospice: Evaluation and treat
Abnormal Lab Results
04/23/25 04/23/25
09:54 11:10
WBC 21.7 H 10^3/uL
(4.8-10.8)
MCH 25.7 L pg
(27.0-31.0)
MCHC 31.7 L g/dL
(33.0-37.0)
RDW 17.9 H %
(11.5-14.5)
Abs Immat Gran (auto) 0.1 H 10^3/uL
(0-0.05)
Absolute Neuts (auto) 17.2 H 10^3/uL
(1.4-6.5)
Absolute Monos (auto) 1.7 H 10^3/uL
(0.1-0.6)
Immature Gran % 0.6 H %
(0-0.5)
Neutrophils % 79.2 H %
(42.2-75.2)
Lymphocytes % 12.0 L %
(20.5-51.1)
BUN 24 H mg/dl
(9-20)
Glucose 282 H mg/dl
(70-99)
Lactic Acid 6.6 H* mmol/L
(0.7-2.0)
Alkaline Phosphatase 155 H U/L
(38-126)
04/23/25 09:54
04/23/25 09:54
Vital Signs
Initial and Last Documented VS:
Initial Vital Signs
Pulse Resp BP Pulse Ox
93 16 93/72 94
04/23/25 09:44 04/23/25 09:44 04/23/25 09:44 04/23/25 09:44
Last Documented Vital Signs
Temp Pulse Resp BP Pulse Ox
96.4 F L 78 25 104/56 94
04/23/25 10:11 04/23/25 13:30 04/23/25 13:30 04/23/25 13:00 04/23/25 12:15
<Severo Rodriguez MD - Last Filed: 04/23/25 12:00>
Orders/Labs/Results
Orders:
Orders
04/23/25 09:54
Type And Crossmatch [Type+Screen] Urgent
Complete Blood Count/With Diff Urgent
Comprehensive Metabolic Panel Urgent
Lipase Urgent
04/23/25 10:13
CT Abd/Pel (IV only)-DH only Urgent
Comment:
Reason For Exam: abd pain coffee ground emesis
Pantoprazole [Protonix IV] 80 mg IV NOW STA
04/23/25 10:18
0.9% Sodium Chloride 1000 ml [Nss] 1,000 ml IV BOLUS
04/23/25 11:07
Fentanyl Citrate/Pf [Sublimaze] 50 mcg IV NOW STA
04/23/25 11:10
Lactic Acid Urgent
04/23/25 12:44
Case Management Consult ONCE
Case Management Consult: Hospice
Hospice: Evaluation and treat
Abnormal Lab Results
04/23/25 04/23/25
09:54 11:10
WBC 21.7 H 10^3/uL
(4.8-10.8)
MCH 25.7 L pg
(27.0-31.0)
MCHC 31.7 L g/dL
(33.0-37.0)
RDW 17.9 H %
(11.5-14.5)
Abs Immat Gran (auto) 0.1 H 10^3/uL
(0-0.05)
Absolute Neuts (auto) 17.2 H 10^3/uL
(1.4-6.5)
Absolute Monos (auto) 1.7 H 10^3/uL
(0.1-0.6)
Immature Gran % 0.6 H %
(0-0.5)
Neutrophils % 79.2 H %
(42.2-75.2)
Lymphocytes % 12.0 L %
(20.5-51.1)
BUN 24 H mg/dl
(9-20)
Glucose 282 H mg/dl
(70-99)
Lactic Acid 6.6 H* mmol/L
(0.7-2.0)
Alkaline Phosphatase 155 H U/L
(38-126)
04/23/25 09:54
04/23/25 09:54
Vital Signs
Initial and Last Documented VS:
Initial Vital Signs
Pulse Resp BP Pulse Ox
93 16 93/72 94
04/23/25 09:44 04/23/25 09:44 04/23/25 09:44 04/23/25 09:44
Last Documented Vital Signs
Temp Pulse Resp BP Pulse Ox
96.4 F L 78 25 104/56 94
04/23/25 10:11 04/23/25 13:30 04/23/25 13:30 04/23/25 13:00 04/23/25 12:15
<Francois Rogers Jr., PA-C - Last Filed: 04/23/25 14:33>
MDM/Problems Addressed
MDM/Problems Addressed:
84-year-old male presenting to the emergency department today with concerns of coffee-ground emesis and generalized abdominal pain this morning. Initial blood pressure slightly low in the 90s over 70s started on fluids. Does have vague abdominal
pain throughout the abdomen. Plan for CT scan for further assessment. Patient CT scan showing closed-loop bowel obstruction of the small bowel with potential ischemic bowel. Lactic of 6.6 significant elevated white count of 21.7. Case was
discussed with the patient's son and power of hvac lead. Patient was not able to answer any questions about this and did not have capacity to answer questions about treatment. The son claimed that he would likely not be seeking invasive high risk
surgical procedures at this time. Case was discussed with surgery that also discussed the scenario with the son which reinforced the decision for hospice at this time. Patient was given medications for pain. Medications for nausea in case
discussed with the hospice team.
<Francois Rogers Jr., PA-C - Last Filed: 04/23/25 14:33>
*Pulse Oximetry
SaO2: 94
Oxygen Mode of Delivery: Room air
Patient hypoxic: no (94)
*Critical Care Note
Total Time (30-74mins, 75-104mins- exclusive of procedures): Not Applicable
ED Attending Note
<Francois Rogers Jr., PA-C - Last Filed: 04/23/25 14:33>
-
Portions of this chart may have been created with voice recognition software.� Occasional wrong word or��sound alike� substitutions may have occurred due to the inherent limitations of voice recognition software.
<Severo Rodriguez MD - Last Filed: 04/23/25 12:00>
ED Attending Note
Patient seen and examined by attending physician: Yes
I performed the substantive portion of visit, reviewed & personally made and approve the management plan that is documented in note by myself or BETINA.: Yes
ED Attending Note:
I have seen and evaluated the patient with a [id number] encounter. I have spoken to the [BETINA] and involved in the medical history, the physical exam, medical decision making.
Evaluation and management service: agree unless noted differently below.
Results interpretation: agree unless noted differently below.
84-year-old male with history of dementia, A-fib on Eliquis, CAD, AAA, diabetes presenting to the emergency department with abdominal pain. Per nursing staff from patient's facility he had coffee-ground emesis as well as generalized abdominal pain.
Otherwise exam was limited given patient's dementia. During my evaluation patient is resting comfortably though does appear slightly pale. He does have diffuse abdominal pain. It is not distended. No rebound or guarding. On arrival patient was
hypotensive. Will give IV fluids. Concern for upper GI bleed versus mesenteric ischemia versus obstruction or perforated viscus. Blood work notable for leukocytosis and elevated lactic acid. CT scan does show close loop small bowel obstruction
as well as possible vascular compromise. Discussed with patient's power of hvac lead who requested discussion with the surgeon. They are likely leaning towards hospice and comfort care. Disposition pending family conversation
Discharge Plan
Departure
Patient Disposition: Hospice - Inpatient
Date of Disposition: 04/23/25
Time of Disposition: 14:33
Admit to: Med/Surg
Admit to doctor: Nima
Patient with high blood pressure during this ER visit?: No
Condition: Serious
Covid-19: Not Applicable
Discharge Problem:
SBO (small bowel obstruction)
Prescriptions:
No Action
allopurinol 300 MG tablet
300 mg PO DAILY Qty: 30 0RF
cyanocobalamin (vitamin B-12) 1,000 mcg Tablet
1,000 mcg PO DAILY
rosuvastatin 40 MG tablet
40 mg PO HS
acetaminophen 325 mg Tablet
650 mg PO Q6HPRN PRN (Reason: mild pain)
potassium chloride 20 mEq Tablet Extended Release
20 meq PO QPM
quetiapine [Seroquel] 25 mg Tablet
25 mg PO HS
metformin 500 mg Tablet
500 mg PO DAILY
magnesium hydroxide [Milk of Magnesia] 400 mg/5 mL Suspension
30 ml PO HSPRN PRN (Reason: if no bm by 3rd day)
bisacodyl 10 mg Suppository
10 mg TN DAILYPRN PRN (Reason: if no bm aftr mom)
sertraline 25 mg Tablet
75 mg PO DAILY
tramadol 25 mg Tablet
25 mg PO Q8HPRN PRN (Reason: back pain)
amlodipine [Norvasc] 10 mg Tablet
10 mg PO DAILY
furosemide [Lasix] 20 mg Tablet
20 mg PO DAILY
magnesium oxide 250 mg magnesium Tablet
250 mg PO QPM
carvedilol 6.25 mg tablet
6.25 mg PO BID
Eliquis 5 mg tablet
5 mg PO BID
ondansetron HCl [Zofran] 4 mg Tablet
4 mg PO Q6HPRN PRN (Reason: nausea)
mirtazapine 7.5 mg Tablet
7.5 mg PO HS
sennosides [Jessica-jacob] 8.6 mg tablet
17.2 mg PO BID
docusate sodium 100 mg capsule
100 mg PO BID
Referrals:
David Shelby MD [Family Provider]
Interventions
Interventions:
*Risk Screen - Suicide Last Done: 04/23/25 09:44
*General Assessment Last Done: 04/23/25 09:44
*Neglect/Abuse Screening Last Done: 04/23/25 09:44
*ED- Fall Risk Assessment Last Done: 04/23/25 09:44
*ED COVID-19 Vaccine History Last Done: 04/23/25 09:44
*ED Influenza Vaccine History Last Done: 04/23/25 09:44
JH-Lczxzv-Igefquxjcq Assessment Last Done: 04/23/25 10:07
Discharge Date and Time
Print Language: [place]
[2025-04-23 10:30] LABS: ALT (SGPT) 25 U/L (0-50)
[2025-04-23] MEDS: SUBLIMAZE 50 MCG IV (11:32)
--- NOTE | 2025-04-23 13:06 | CM ---
Chart reviewed and received cm consult for hospice
Went to patient but he is not able to talk
Per ZAIRA Edward in ED son is at lunch but would be back soon
Per PA patient was seen by general surgery and without surgery he would in a couple of days
PA talked with son and son would agree with hospice service
CM spoke with [facility] to evaluate to see if he is appropriate for inpt vs outpt.
Patient is a LTC resident at [facility].
CM will continue to follow up for any needs.
--- NOTE | 2025-04-23 14:24 | HPS.HSE ---
Family Physician
-
Family Physician: David Shelby
Chief Complaint
-
vomiting and abdominal pain
History of Present Illness
Mr. Partha Grewal is a 84 yo man with hx vascular dementia, CVA, CAD (s/p CABG 2002), AAA repair, bowel resection 2013, essential HTN, HLD presents to the ER from [facility] with report of abdominal pain and coffee ground emesis.
Patient unable to provide significant history. Labs significant for WBC 21.7, lactate 6.6. CT abdomen performed which showed closed-loop bowel obstruction with potential ischemic bowel. ER physician discussed plan with patient's son and decision
made to avoid high risk surgical procedure and focus on comfort. Patient was evaluated by the hospice team and will be admitted to inpatient hospice.
On my interview patient resting comfortably, he tells me he has a stomach ache.
Per son, at baseline patient is very forgetful and knows who family is but cannot carry on a meaningful conversation.
Medical History
Past Medical History
Past Medical History: Reports Other
Additional Past Medical History:
Dementia, history of stroke, chronic back pain, atrial fibrillation, CHF, coronary artery disease, hypertension, hyperlipidemia, peripheral artery disease, peptic ulcer disease, history of renal failure, gout, diabetes
Past Surgical History: Reports Other
Additional Past Surgical History:
Carpal tunnel surgery bilateral, bilateral inguinal hernia surgery, CABG in 2002, bowel resection 2013, left lower extremity vascular stent, AAA repair, stent in the right kidney
Social History
Tobacco: Former Smoker
Family History
Family History: Unable to Obtain
Allergies / Home Medications
Allergies reflects when Allergies were last updated in [facility].
Home Medications with original date entered in [facility]
Allergy/Medication List:
Allergies
Allergy/AdvReac Type Severity Reaction Status Date / Time
NSAIDS (Non-Steroidal Allergy Unknown Verified 04/23/25 09:51
Anti-Inflamma
rofecoxib Allergy Unknown Verified 04/23/25 09:51
Salicylates * Allergy Unknown Verified 04/23/25 09:51
Home Medications
allopurinol 300 mg tablet 300 mg PO DAILY Gout #30 tabs 04/30/21
cyanocobalamin (vitamin B-12) 1,000 mcg tablet 1,000 mcg PO DAILY Supplement 12/13/21
rosuvastatin 40 mg tablet 40 mg PO HS High cholesterol 12/29/21
acetaminophen 325 mg tablet 650 mg PO Q6HPRN PRN mild pain 04/05/22
potassium chloride 20 mEq tablet,extended release 20 meq PO QPM Electrolyte Repletion 04/05/22
metformin 500 mg tablet 500 mg PO DAILY Diabetes 10/31/23
quetiapine 25 mg tablet (Seroquel) 25 mg PO HS Mental Health/Anxiety 10/31/23
amlodipine 10 mg tablet (Norvasc) 10 mg PO DAILY Blood Pressure 01/20/25
apixaban 5 mg tablet (Eliquis) 5 mg PO BID Blood Clot Prevention/Tx 01/20/25
bisacodyl 10 mg rectal suppository 10 mg MT DAILYPRN PRN if no bm aftr mom 01/20/25
carvedilol 6.25 mg tablet 6.25 mg PO BID Blood Pressure 01/20/25
furosemide 20 mg tablet (Lasix) 20 mg PO DAILY Fluid Retention/Swelling 01/20/25
magnesium hydroxide 400 mg/5 mL oral suspension (Milk of Magnesia) 30 ml PO HSPRN PRN if no bm by 3rd day 01/20/25
magnesium oxide 250 mg PO QPM Supplement 01/20/25
sertraline 25 mg tablet 75 mg PO DAILY Mental Health 01/20/25
tramadol 25 mg tablet 25 mg PO Q8HPRN PRN back pain 01/20/25
docusate sodium 100 mg capsule 100 mg PO BID Constipation 04/23/25
mirtazapine 7.5 mg tablet 7.5 mg PO HS Sleep 04/23/25
ondansetron HCl 4 mg tablet 4 mg PO Q6HPRN PRN nausea 04/23/25
sennosides 8.6 mg tablet (Jessica-jacob) 17.2 mg PO BID Constipation 04/23/25
Review of Systems
-
History Source: Patient
A 12 point ROS was completed and negative except as noted: Yes
Physical Exam
Vital Signs
Vital Signs
Temp Pulse Resp BP Pulse Ox
96.4 F L 78 25 104/56 94
04/23/25 10:11 04/23/25 13:30 04/23/25 13:30 04/23/25 13:00 04/23/25 12:15
Physical Exam
General: No Apparent Distress
HEENT: PERRLA
Respiratory: Clear; No Wheezes
Cardiac: S1/S2 and Regular Rhythm
GI: Other (abdomen tender )
Skin: Warm and Dry; No Rash
Neuro: Awake and Alert
Psych: Calm and Apparent Dementia
Laboratory Results
-
04/23/25 09:54
04/23/25 09:54
Laboratory Results
Lactic Acid 6.6 mmol/L (0.7-2.0) H* 04/23/25 11:10
Total Bilirubin 0.6 mg/dl (0.2-1.3) 04/23/25 09:54
AST 27 U/L (17-59) 04/23/25 09:54
ALT 25 U/L (0-50) 04/23/25 09:54
Alkaline Phosphatase 155 U/L (38-126) H 04/23/25 09:54
Lipase 140 U/L (23-300) 04/23/25 09:54
Data Reviewed
-
Diagnostic Radiology: Report Reviewed by me
Lab Data: Labs Reviewed by me
Impression/Plan
-
Mr. Partha Grewal is a 84 yo man with hx vascular dementia, CVA, CAD (s/p CABG 2002), AAA repair, bowel resection 2013, essential HTN, HLD presents to the ER from [facility] with report of abdominal pain and coffee ground emesis.
Triage vitals significant for BP 93/72, P 93. Labs with WBC 21.7, creatinine 1.3, glucose 282, lactate 6.6.
CT A/P
IMPRESSION:
Right-sided abdominal small bowel dilatation with air-fluid levels and at least mild hypoenhancement of the franco with central whirling mesentery suspicious for closed loop small bowel obstruction, cannot exclude internal hernia. Cannot exclude
vascular compromise (relative mild hypodense small bowel franco) although no discrete small bowel pneumatosis. Recommend correlation with se
rum lactate level and recommend emergent surgical consultation. Findings discussed by telephone with Francois Rogers PA-C in the emergency department at 1058 hours on April 23, 2025.
Small volume free fluid. No free air.
Patent abdominal aortic stent graft.
Relative prominent size gallbladder. No findings to suggest biliary tract dilatation.
Additional nonurgent findings, as detailed above.
Small Bowel Obstruction with concern for ischemia
-plan of care discussed between ER physician, son and decision made to avoid invasive high risk surgery and focus on comfort. Hospice team consulted in ER and patient will be admitted to inpatient hospice
Vascular Dementia
CAD s/p CABG 2002
AAA s/p repair
Essential HTN
HLD
-hold all non-comfort medications
-IV morphine now, IV morphine PRN with progression to drip if needed
-son aware that patient may pass within manner of hours to days
-appreciate hospice team
DNR
76 minutes spent on patient care
--- NOTE | 2025-04-23 14:26 | HOSPNOTE ---
Patient will be admitted inpatient hospice. Consents are signed and admissions called. Patient will be admitted onto [facility]. Patient will be seen daily by hospice.
[2025-04-23] MEDS: MORPHINE SULFATE 2 MG IV ×3 (15:07→21:45)
--- NOTE | 2025-04-23 16:24 | PTCARENOTE ---
Received pt from ED into room 2123. Oriented to self and year. Admission information obtained from sonMarcel. Discussed plan of care. Bed alarm in place and monitoring.
[2025-04-23] MEDS: NSS (PRESERVATIVE FREE) 10 ML IV (21:38)
[2025-04-23] MEDS: PROTONIX IV 40 MG IV (21:39)
[2025-04-24] MEDS: MORPHINE SULFATE 2 MG IV ×3 (05:50→11:48)
[2025-04-24 07:00] VITALS: BP 88/48
[2025-04-24] MEDS: PROTONIX IV 40 MG IV (09:06)
[2025-04-24] MEDS: NSS (PRESERVATIVE FREE) 10 ML IV (09:06)
[2025-04-24] MEDS: ATIVAN 1 MG IV ×2 (09:21→12:09)
--- NOTE | 2025-04-24 10:06 | W.PN.HOSP.TC ---
Addendum entered and electronically signed by Timbo Booth MD 04/24/25 10:54:
Attending�addendum:
I saw and evaluated the patient. I reviewed the resident�s note and agree with findings and plan as documented in the resident�s note.��patient admitted yesterday to inpatient hospice, patient seen and examined at bedside, looks comfortable.
Physical�exam:
GENERAL : Patient is awake, not fully oriented.
HEENT: Nonicteric sclerae.
CHEST: Chest wall is nontender.
HEART: Regular rate and rhythm without murmurs.
LUNGS: rales bilaterally.
ABDOMEN: Soft, positive bowel sounds, mild tender, no organomegaly.
RECTAL: Deferred.
MUSCLES/EXTREMITIES: No abnormal range of motion, no swelling.SKIN: No rash, no excessive bruising, petechiae, or purpura.
NEUROLOGIC: confused.
�
Assessment/plan:
Small bowel obstruction/potential ischemic bowel with elevated lactic acid.
Patient admitted to inpatient hospice.
Continue comfort measures only
Total time spent on today�s encounter was 55 minutes which included time spent in counseling the patient/family regarding diagnosis and treatment plan as listed above, goals of care, and symptom management. Case was discussed with nursing staff,
specialists, and care coordinators/case management. All labs and imaging personally reviewed by me. Remainder the time spent in detailed review of previous records, lab data, imaging, and other medical provider documentation.
Original Note:
Today's Communication/Plan
-
.
Assessment / Plan
Assessment / Plan
Partha Grewal is a 84M w/ PMHx vascular dementia, CVA, CAD, AAA, bowel resection, HTN, HLD who presented with abdominal pain and coffee ground emesis found to have closed loop SBO with potentially ischemic bowel (lactate 6.6), with decision
made to go on [facility] hospice.
PLAN
- Hold all noncomfort meds
- Morphine 2g IV q1hprn; if continued pain, can start drip
- Ativan PRN for agitation
- Glycopyrrolate, Zofran/Compezine
Anticipated Discharge: Within 24 hours
Subjective/Interval History
-
Date of Service: April 24, 2025
Patient seen and examined.
Not endorsing pain currently.
Limited ability to verbally interact.
Family has not been at bedside yet.
Episode of agitation overnight per nursing.
Objective Data
-
Vital Signs:
Vital Signs
Temp Pulse Resp BP Pulse Ox
97.6 F 91 20 88/48 89
04/24/25 07:00 04/24/25 07:00 04/24/25 07:00 04/24/25 07:00 04/24/25 07:00
I&O
04/23/25 04/24/25 04/25/25
06:59 06:59 06:59
Intake Total 0 / 0
Balance 0 / 0
Review of Systems
-
Unable to obtain full review of systems at this time due to: Dementia
Physical Exam
-
General: Appears Chronically Ill
HEENT: Normocephalic, Atraumatic and Moist Mucous Membranes
Respiratory: Non Labored Respirations
Cardiac: Regular Rhythm and S1/S2
GI: Soft, Nontender and Other (hypoactive bowel sounds)
Skin: Warm
Neuro: Awake and Other
Psych: Calm
--- NOTE | 2025-04-24 12:39 | PTCARENOTE ---
Patient observed not breathing. Pupils fixed, dilated and non-reactive. No heart tones. MD was notified to pronounce. Son was at bedside at this time and was aware that his father passed and provided emotional support.
--- NOTE | 2025-04-24 12:50 | HOSPNOTE ---
Cigarette Package Examiner visited patient at [facility] in room 2123. Patient was resting in peace and comfort with son by his side. Son has reported patient is in no pain today. Patient has a diagnosis of dementia and CHF. His last October and he has
sloped downhill since that time. Family originally lived in [facility] [place] [place] [facility] and moved to the [facility] 20 years ago. 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 Patient has 2 sons who are very supportive and
they have come to acceptance and just wish patient will pass with peace and comfort. Cigarette Package Examiner provided emotional and spiritual support through presence, touch and prayer as well as active listening with the family.
--- NOTE | 2025-04-24 12:52 | W.PN.DEATH ---
Pronouncement of
-
Called to see patient to pronounce.
No spontaneous heart tones or respirations noted.
Patient not responsive to verbal stimuli.
Patient is pronounced .
Time of : 12:37
Date of : 04/24/25
Cause of : Acute hypoxic respiratory failure secondary to Small bowel obstruction
Family Notified: Yes
--- NOTE | 2025-04-24 13:12 | W.DCSUMMARY ---
Addendum entered and electronically signed by Timbo Booth MD 04/24/25 13:43:
e-Vital Case ID:�[id number]
Original Note:
Discharge Summary
Discharge Data
Date of Admission: 04/23/25
Date of Discharge: 04/24/25
Total time spent discharging patient (in min): 40
-
Pending Results: No
Hospital Course
Hospital course
Patient is Partha 84M w/ PMHx vascular dementia, CVA, CAD, AAA, bowel resection, HTN, HLD who presented with abdominal pain and coffee ground emesis found to have closed loop SBO with potentially ischemic bowel (lactate 6.6), with decision made to
go on [facility].
Patient started on comfort measures only included however morphine and Ativan, was tachypneic and decision made to start morphine drip.
Son at bedside, discussed plan with the son.
12:37 pm
I was Called to see patient to pronounce.
No spontaneous heart tones or respirations noted.
Patient not responsive to verbal stimuli.
Patient is pronounced .
Time of : 12:37
Date of : 04/24/25
Cause of : Acute hypoxic respiratory failure secondary to Small bowel obstruction
Family Notified: Yes (son at bedside)
Total time spent on today's encounter was 40 minutes which included time spent in counseling the patient/family regarding diagnosis and treatment plan as listed above, goals of care, and symptom management. Case was discussed with nursing staff,
specialists, and care coordinators/case management. All labs and imaging personally reviewed by me. Remainder the time spent in detailed review of previous records, lab data, imaging, and other medical provider documentation.
Anticipated Discharge: Today
Discharge Plan
-
Patient Disposition:
Date/Time
Date/Time: 04/24/25 12:37
Discharge Date and Time
Print Language: ALBANIAN
== END 2025-04-24 12:37 | disposition expired | DRG 951 ==
LOC: 2 NORTH 14:59
PROVIDERS: Physician Assistant; ADMITTING PHYSICIAN Student in an Organized Health Care Education/Training Program; ATTENDING PHYSICIAN General Practice; EMERGENCY PHYSICIAN Student in an Organized Health Care Education/Training Program; FAMILY PHYSICIAN Internal Medicine
DX: Z51.5 Encounter for palliative care (principal); J96.01 Acute respiratory failure with hypoxia; K56.609 Unspecified intestinal obstruction, unspecified as to partial versus complete obstruction; E87.20 Acidosis, unspecified; F01.50 Vascular dementia, unspecified severity, without behavioral disturbance, psychotic disturbance, mood disturbance, and anxiety; I25.10 Atherosclerotic heart disease of native coronary artery without angina pectoris; Z95.1 Presence of aortocoronary bypass graft; I11.0 Hypertensive heart disease with heart failure; Z86.73 Personal history of transient ischemic attack (TIA), and cerebral infarction without residual deficits; Z87.891 Personal history of nicotine dependence; Z79.01 Long term (current) use of anticoagulants; D72.829 Elevated white blood cell count, unspecified; E11.51 Type 2 diabetes mellitus with diabetic peripheral angiopathy without gangrene; E78.00 Pure hypercholesterolemia, unspecified; F02.80 Dementia in other diseases classified elsewhere, unspecified severity, without behavioral disturbance, psychotic disturbance, mood disturbance, and anxiety; G30.9 Alzheimer's disease, unspecified; I48.91 Unspecified atrial fibrillation; Z66 Do not resuscitate; Z79.84 Long term (current) use of oral hypoglycemic drugs; Z86.79 Personal history of other diseases of the circulatory system; Z87.11 Personal history of peptic ulcer disease
CPT/HCPCS: 74177; 80053; 83605; 83690; 85025; 86850; 86900; 86901; 96361; 96374; 96375; 99285; Q9967